=== PATIENT | female | born 1945 | race Caucasian/White ===

== ENCOUNTER → 2017-12-23 | Outpatient (CLI) | payer MEDICARE ==
[~2017-12-23] MED LIST: REGADENOSON INJ 0.4 MG/5 ML DISP.SYRIN IV ONE
--- NOTE | 2017-12-23 13:40 | DRAGON STRESS TEST REPORT ---
INTRAVENOUS LEXISCAN CARDIOLITE STRESS TEST USING SINGLE PHOTON EMMISION COMPUTERIZED TOMOGRAPHIC. DATE OF PROCEDURE: December 23, 2017, INDICATION : Shortness of breath CARDIAC RISK FACTORS: Hypertension, dyslipidemia, former smoker RESTING EKG: Sinus rhythm with right bundle branch block pattern. Left axis deviation noted. STRESS EKG: No significant ST segment changes noted with LexiScan bolus REASON FOR TERMINATION: Protocol. PROCEDURE REPORT: Baseline heart rate 93 beats per minute with blood pressure of 176/79. Patient had no significant complaints. Patient was bolused with Lexiscan 0.4 mg intravenously followed by saline bolus. Heart rate at 2 minutes post bolus 120 with a blood pressure of 163/67. 3 minutes post bolus heart rate 111 with blood pressure of 172/73. No significant EKG changes were noted. Patient had no significant complaints during the procedure or postprocedure. CONCLUSIONS: Normal EKG and hemodynamic response to IV LexiScan. NUCLEAR DATA: At rest the patient was given 11.77 millicuries of technetium 99 sestamibi injected intravenously. As per protocol rest gated SPECT images were obtained. On day of stress test, the patient was given intravenous LexiScan at a dose of 0.4 mg in 5 mL intravenously, followed by flush with normal saline. Subsequently the stress dose of 34.2 millicuries of technetium 99 sestamibi was injected intravenously. As per protocol stress gated images were obtained. NUCLEAR INTERPRETATION: Both raw and processed data were used for interpretation. Visual, qualitative, computer-generated quantitative data was used. There was good myocardial uptake of technetium compound. Motion artifact and soft tissue attenuations were noted. Increased visceral uptake was noted. No definitive areas of transient perfusion defect noted, except for borderline decreased uptake noted in the distal lateral wall. There were no corresponding wall motion abnormalities. This is felt to be artifactual related to attenuation artifacts, No definitive areas of fixed perfusion defect or scars noted. EKG gated imaging showed LV EF at 82 %, rest and stress gated EF similar visually. T. I D. ratio was 1.01. Lung heart ratio noted to be within normal limits 0.41. No significant extracardiac and abnormal radiotracer activities were noted. RV free wall uptake was noted to be WNL. IMPRESSION: Also refer to comments under nuclear interpretation. Also test results needs to be interpreted in the context of pretest probability. 1. No definitive areas of transient perfusion defect noted. 2. There is no definitive scintigraphic evidence of myocardial infarction/scar. 3. EKG gated imaging shows left ventricular ejection fraction of approx. 82 %. LVH noted. 4. Clinical correlation requested as occasionally single vessel disease or balanced ischemia could be missed. In approximately 10% of the cases Lexiscan may not cause adequate vasodilatory stress. RECOMMENDATIONS: Aggressive risk factor modification and medical management. Further evaluation may be needed if continued symptoms or other high risk indicators are noted on clinical evaluation. Close cardiology follow-up is also recommended. Clinical correlation with echocardiogram derived ejection fraction. Inability to exercise by itself can lead to increased cardiovascular event risks. Consider cardiology consultation and or follow-up if clinically indicated. I am available for cardiology evaluation and consultation if requested by the plate glass polisher, unless patient already has a propellant assembler. Dr. Rachele Meyer. MRCP Board certified in cardiology and sleep medicine. Board certified in nuclear cardiology, adult echocardiography. MARCELINO
== END ==
LOC: RAD 07:50
PROVIDERS: ATTEND Internal Medicine Cardiovascular Disease
DX: R06.02 Shortness of breath (principal)
CPT/HCPCS: 93017; 78452; A9500; J2785; Q9969

== ENCOUNTER 2019-02-14 15:57 | Inpatient (IN) | payer MEDICARE, OTHER ==
[2019-02-14] MEDS ORDERED: NORMAL SALINE 1000 ML 1,000 ML IV ONE ×3 (16:31→18:17)
[2019-02-14 16:49] LABS: VENOUS BLOOD BASE EXCESS -5.2 mmol/L; VENOUS BLOOD PCO2 33.4 mmHg (35-63); VENOUS BLOOD PH 7.37 (7.30-7.42)
[2019-02-14 16:52] LABS: HEMATOCRIT 40.6 % (36.0-47.0); HEMOGLOBIN 13.4 g/dL (12.0-15.5); MEAN CORPUSCULAR HEMOGLOBIN 29.4 pg (27.0-33.4); MEAN CORPUSCULAR HGB CONC 32.9 g/dL (32.0-36.0); MEAN CORPUSCULAR VOLUME 89 fl (80-97); PLATELET COUNT 157 10^3/uL (150-450); RED BLOOD COUNT 4.55 10^6/uL (3.72-5.28); RED CELL DISTRIBUTION WIDTH 13.8 % (11.5-14.0); WHITE BLOOD COUNT 16.8 10^3/uL (4.0-10.5)
[2019-02-14 16:59] LABS: INTERNATIONAL RATION (INR) 2.81; PROTHROMBIN TIME 30.2 SEC (11.4-15.4)
[2019-02-14 17:12] LABS: ALKALINE PHOSPHATASE 71 U/L (38-126); ANION GAP 12 (5-19); ASPARTATE AMINO TRANSFERASE 26 U/L (14-36); BILIRUBIN,DIRECT 0.5 mg/dL (0.0-0.4); BLOOD UREA NITROGEN 45 mg/dL (7-20); CALCIUM 8.4 mg/dL (8.4-10.2); CARBON DIOXIDE 23 mmol/L (22-30); CHLORIDE 99 mmol/L (98-107); GLUCOSE 92 mg/dL (75-110); POTASSIUM 4.2 mmol/L (3.6-5.0); TOTAL PROTEIN 5.6 g/dL (6.3-8.2)
[2019-02-14 17:24] LABS: AMORPHOUS SEDIMENT,URINE TRACE /HPF; APPEARANCE,URINE CLOUDY; BILIRUBIN,URINE NEGATIVE (NEGATIVE); COLOR,URINE AMBER; GLUCOSE, URINE NEGATIVE (NEGATIVE); KETONES,URINE NEGATIVE (NEGATIVE); LEUKOCYTE ESTERASE,URINE MODERATE (NEGATIVE); NITRITE,URINE NEGATIVE (NEGATIVE); PROTEIN,URINE 30 mg/dL (NEGATIVE); URINE SPECIFIC GRAVITY 1.024; UROBILINOGEN,URINE NEGATIVE mg/dL (<2.0)
[2019-02-14 17:25] LABS: ABSOLUTE MONOCYTES # (MANUAL) 0.7 10^3/uL (0.1-1.4); BAND NEUTROPHILS % (MANUAL) 4 % (3-5); BASOPHILS % (MANUAL) 0 % (0-2); EOSINOPHILS % (MANUAL) 0 % (0-6); LYMPHOCYTES % (MANUAL) 6 % (13-45); METAMYELOCYTES % (MANUAL) 1 % (0); MONOCYTES % (MANUAL) 4 % (3-13); SEGMENTED NEUTROPHILS % (MAN) 85 % (42-78); TOTAL CELLS COUNTED 100
[2019-02-14 17:31] LABS: OVALOCYTES SLIGHT; PLATELET COMMENT ADEQUATE; PLATELET LARGE PRESENT; POIKILOCYTOSIS SLIGHT; TOXIC GRANULATION SLIGHT; TOXIC VACUOLATION PRESENT
[2019-02-14] MEDS ORDERED: PIPERACILLIN/TAZOBACTAM 4.5 GM VIAL IV ONE (17:44)
--- NOTE | 2019-02-14 17:58 | RADIOLOGY REPORT (SQ) ---
EXAM DESCRIPTION: CHEST SINGLE VIEW COMPLETED DATE/TIME: 02/14/2019 5:32 pm REASON FOR STUDY: cough COMPARISON: None. EXAM PARAMETERS: NUMBER OF VIEWS: One view. TECHNIQUE: Single frontal radiographic view of the chest acquired. RADIATION DOSE: NA LIMITATIONS: None. FINDINGS: LUNGS AND PLEURA: Retrocardiac opacification on the left. Left hemidiaphragm is indistinc t. MEDIASTINUM AND HILAR STRUCTURES: No masses. Contour normal. HEART AND VASCULAR STRUCTURES: Cardiomegaly. No lasha pulmonary edema. BONES: No acute findings. HARDWARE: None in the chest. OTHER: No other significant finding. IMPRESSION: Cardiomegaly without pulmonary edema. Cannot exclude left lower lobe pneumonia. TECHNICAL DOCUMENTATION: JOB ID: [id number] [employer]- All Rights Reserved Reading location - IP/workstation name: [email or web address]
--- NOTE | 2019-02-14 18:11 | ER Document Report ---
ED Fall - General Chief Complaint: Fall Stated Complaint: FALL Time Seen by Provider: 02/14/19 16:24 Primary Care Provider: EVELYN LUJAN MD [Primary Care Provider] - Follow up as needed Mode of Arrival: Wheelchair Information source: Patient TRAVEL OUTSIDE OF THE [place] IN LAST 30 DAYS: No - HPI Notes: Patient brought in by son for weakness. Patient states yesterday she was seen in the chair she became weak and fell. Today she states she felt even more weak so she had her son bring her to the hospital. She states she was recently diagnosed with a sinus infection and placed on antibiotics. She also has recently developed diarrhea. No hospital stays. Patient denies any pain. No vomiting. No problems with urination. Patient symptoms been constant and severe. They are worse with exertion and better with rest. There is no radiation of the symptoms. Patient denies losing consciousness. Denies any blood in her stool. - Related data Allergies/Adverse Reactions: atenolol Allergy (Verified 02/14/19 16:49) Past Medical History - General Information source: Patient, Relative - Social History Smoking Status: Never Smoker Frequency of alcohol use: None Drug Abuse: None Family History: Reviewed & Not Pertinent Patient has suicidal ideation: No Patient has homicidal ideation: No Review of Systems - Review of Systems Constitutional: Malaise, Weakness Cardiovascular: denies: Chest pain, Dyspnea Respiratory: Cough. denies: Short of breath Gastrointestinal: Diarrhea, Nausea. denies: Abdominal pain, Vomiting Neurological/Psychological: Weakness -: Yes All other systems reviewed and negative Physical Exam - Vital signs Vitals: Temp Pulse Resp BP Pulse Ox 97.8 F 83 20 64/24 L 91 L 02/14/19 16:14 02/14/19 16:14 02/14/19 16:14 02/14/19 16:14 02/14/19 16:14 Interpretation: Hypotensive - General General appearance: Alert In distress: None - HEENT Head: Normocephalic, Atraumatic Eyes: Normal Pupils: PERRL - Respiratory Respiratory status: No respiratory distress Chest status: Nontender Breath sounds: Normal Chest palpation: Normal - Cardiovascular Rhythm: Regular Heart sounds: Normal auscultation Murmur: No - Abdominal Inspection: Normal Distension: No distension Bowel sounds: Normal Tenderness: Nontender Organomegaly: No organomegaly - Back Back: Normal, Nontender - Extremities General upper extremity: Normal inspection, Nontender, Normal color, Normal ROM, Normal temperature General lower extremity: Normal inspection, Nontender, Normal color, Normal ROM, Normal temperature, Normal weight bearing. No: Nitish's sign - Neurological Neuro grossly intact: Yes Cognition: Normal Orientation: AAOx4 [place] Coma Scale Eye Opening: Spontaneous [place] Coma Scale Verbal: Oriented [place] Coma Scale Motor: Obeys Commands [place] Coma Scale Total: 15 Speech: Normal Motor strength normal: LUE, RUE, LLE, RLE Sensory: Normal - Psychological Associated symptoms: Normal affect, Normal mood - Skin Skin Temperature: Warm Skin Moisture: Dry Skin Color: Pale Course - Re-evaluation Re-evalutation: 02/14/19 17:57 Patient reevaluated just now. Her blood pressure is now 104 systolic after 2 L of fluid. Her C. difficile is pending but since patient has an elevated lactate and was hypotensive and has a urinalysis consistent with infection I will give her a dose of Zosyn. Abdomen still nontender and nondistended. Hemoglobin is stable. Patient has never been tachycardic. Patient is definitely more awake and conversant than on arrival. I have discussed the case with the admitting hospitalist who is accepted the patient for admission. - Vital Signs Vital signs: Temp Pulse Resp BP Pulse Ox 97.8 F 83 17 94/55 L 100 02/14/19 17:14 02/14/19 16:14 02/14/19 17:14 02/14/19 17:14 02/14/19 17:14 - Laboratory Result Diagrams: 02/14/19 16:27 02/14/19 16:27 Laboratory results interpreted by me: 02/14/19 02/14/19 02/14/19 16:27 16:27 16:27 WBC 16.8 H Seg Neuts % (Manual) 85 H Lymphocytes % (Manual) 6 L Metamyelocytes % 1 H Abs Neuts (Manual) 15.1 H PT 30.2 H VBG pCO2 VBG HCO3 Sodium 133.9 L BUN 45 H Creatinine 2.37 H Est GFR ( Amer) 24 L Est GFR (MDRD) Non-Af 20 L Lactic Acid Direct Bilirubin 0.5 H Total Protein 5.6 L Albumin 3.0 L Urine Protein Ur Leukocyte Esterase 02/14/19 02/14/19 02/14/19 16:27 16:27 17:05 WBC Seg Neuts % (Manual) Lymphocytes % (Manual) Metamyelocytes % Abs Neuts (Manual) PT VBG pCO2 33.4 L VBG HCO3 19.0 L Sodium BUN Creatinine Est GFR ( Amer) Est GFR (MDRD) Non-Af Lactic Acid 2.4 H Direct Bilirubin Total Protein Albumin Urine Protein 30 H Ur Leukocyte Esterase MODERATE H - Diagnostic Test Radiology reviewed: Image reviewed, Reports reviewed - EKG Interpretation by Me EKG shows normal: abnormal: Sinus rhythm Rate: Normal Rhythm: A.Fib [place]/QRS: RBBB Critical Care Note - Critical Care Note Total time excluding time spent on procedures (mins): 55 Comments: I performed critical care on this patient's approximate 55 minutes. This included multiple reassessments. Is included discussions with family. It included reviewing images as well as laboratories. It included discussions with consultants. Discharge - Discharge Clinical Impression: Lower GI bleed Hypotension Qualifiers: Hypotension type: hypotension due to hypovolemia Qualified Code(s): I95.89 - Other hypotension; E86.1 - Hypovolemia Diarrhea Qualifiers: Diarrhea type: unspecified type Qualified Code(s): R19.7 - Diarrhea, uns pecified UTI (urinary tract infection) Qualifiers: Urinary tract infection type: acute cystitis Hematuria presence: without hematuria Qualified Code(s): N30.00 - Acute cystitis without hematuria Sepsis Qualifiers: Sepsis type: sepsis due to unspecified organism Sepsis acute organ dysfunction status: with acute organ dysfunction Severe sepsis acute organ dysfunction type: acute renal failure Acute renal failure type: unspecified Severe sepsis shock status: with septic shock Qualified Code(s): A41.9 - Sepsis, unspecified organism; R65.21 - Severe sepsis with septic shock; N17.9 - Acute kidney failure, unspecified Condition: Critical Disposition: ADMITTED INPATIENT Admitting Provider: Brian (Hospitalist) Unit Admitted: IMCU Referrals: EVELYN LUJAN MD [Primary Care Provider] - Follow up as needed
[2019-02-14] MEDS ORDERED: ONDANSETRON HCL INJ/PF 4 MG/2 ML SDV IV PRN (18:26)
--- NOTE | 2019-02-14 18:55 | PDOC H&P ---
History of Present Illness Admission Date/PCP: EVELYN LUJAN MD History of Present Illness: AUTUMN JOHNSTON is a 73 year old female with a history of atrial fibrillation on chronic anticoagulation who presents with approximately 1 week of upper respiratory symptoms followed by a fall yesterday. She said that she been feeling really lousy for about a week, primarily with upper respiratory congestion and a bit of a cough. She said she had one episode of diarrhea but that is all. She has not had any antibiotics in the past 3 months, but went to see her doctor yesterday who started her on Levaquin, and the first dose was last night. The diarrhea that she had was before the Levaquin and she has not had any since. She has had decreased p.o. intake including decreased fluid intake, and claims to have had decreased urine output over the last couple of days. She is continue to take her medications, but she does not know the names of all of them but she knows that she takes Coumadin for her atrial fibrillation. She was sitting in a chair in the kitchen doing some work y esterday when she feels like she fell asleep and then fell. She was not on the floor long, maybe a few minutes, before her son who lives with her found her and helped get her back up into the chair. She did not want to come to the hospital. She was talking to her sister in [place] on the phone, who encouraged her to come to the hospital to get checked out today. She was found to have a very low blood pressure which has responded to some IV fluids, as well as an elevated creatinine. She is complaining of some pain on her left rib cage laterally in her left shoulder where she fell. She was also noted on her chest x-ray to have a possible left lower lobe opacity. No comment was made on the x- ray about her left shoulder her left rib cage, but the film was not done specifically to evaluate those. She is being admitted for what we suspect to be an acute kidney injury, dehydration, hypotension, and a possible left lower lobe pneumonia. Past Medical History Cardiac Medical History: Reports: Hypertension Social History Smoking Status: Never Smoker Family History Family History: Reviewed & Not Pertinent Parental Family History Reviewed: Yes - Coronary artery disease, hypertension Children Family History Reviewed: Yes - Nothing known Sibling(s) Family History Reviewed.: Yes - Hypertension Medication/Allergy Allergies/Adverse Reactions: atenolol Allergy (Verified 02/14/19 16:49) Review of Systems All systems: reviewed and no additional remarkable complaints except as stated - All systems were reviewed and were negative except as noted in the HPI Physical Exam Vital Signs: Temp Pulse Resp BP Pulse Ox 97.8 F 83 17 94/55 L 100 02/14/19 17:14 02/14/19 16:14 02/14/19 17:14 02/14/19 17:14 02/14/19 17:14 Intake & Output 02/13/19 02/14/19 02/15/19 06:59 06:59 06:59 Intake Total 1999 Balance 1999 Weight 60.5 kg General appearance: PRESENT: no acute distress, cooperative, disheveled, hard of hearing Head exam: PRESENT: atraumatic, normocephalic Eye exam: PRESENT: EOMI, PERRLA. ABSENT: conjunctival injection, nystagmus Ear exam: PRESENT: normal external ear exam Mouth exam: PRESENT: dry mucosa, neck supple Teeth exam: PRESENT: poor dentation Throat exam: ABSENT: post pharyngeal erythema Neck exam: PRESENT: full ROM. ABSENT: carotid bruit, JVD, lymphadenopathy, meningismus, tenderness, thyromegaly Respiratory exam: PRESENT: clear to auscultation skyler, symmetrical, unlabored. ABSENT: accessory muscle use, chest wall tenderness, crackles, prolonged expiratory phas, rhonchi, tachypnea, wheezes Cardiovascular exam: PRESENT: irregular rhythm, +S1, +S2 Pulses: PRESENT: normal carotid pulses Vascular exam: PRESENT: normal capillary refill GI/Abdominal exam: PRESENT: normal bowel sounds, soft. ABSENT: distended, guarding, rebound, tenderness Extremities exam: PRESENT: tenderness - Left shoulder over the acromion process. ABSENT: clubbing, pedal edema Musculoskeletal exam: PRESENT: normal inspection, tenderness - Left shoulder over acromion and left superior lateral rib cage. ABSENT: deformity Neurological exam: PRESENT: alert, awake, oriented to person, oriented to place, oriented to time, oriented to situation, CN II-XII grossly intact. ABSENT: motor sensory deficit Psychiatric exam: PRESENT: appropriate affect, normal mood Skin exam: PRESENT: dry, warm Results Laboratory Results: 02/14/19 16:27 02/14/19 16:27 02/14/19 02/14/19 02/14/19 16:27 16:27 16:27 WBC 16.8 H RBC 4.55 Hgb 13.4 Hct 40.6 MCV 89 MCH 29.4 MCHC 32.9 RDW 13.8 Plt Count 157 Seg Neutrophils % Not Reportable VBG pH VBG pCO2 VBG HCO3 VBG Base Excess Sodium 133.9 L Potassium 4.2 Chloride 99 Carbon Dioxide 23 Anion Gap 12 BUN 45 H Creatinine 2.37 H Est GFR ( Amer) 24 L Glucose 92 Lactic Acid 2.4 H Calcium 8.4 Total Bilirubin 1.0 AST 26 Alkaline Phosphatase 71 Total Protein 5.6 L Albumin 3.0 L Urine Color Urine Appearance Urine pH Ur Specific [place] Urine Protein Urine Glucose (UA) Urine Ketones Urine Blood Urine Nitrite Ur Leukocyte Esterase Urine WBC (Auto) Urine RBC (Auto) 02/14/19 02/14/19 16:27 17:05 WBC RBC Hgb Hct MCV MCH MCHC RDW Plt Count Seg Neutrophils % VBG pH 7.37 VBG pCO2 33.4 L VBG HCO3 19.0 L VBG Base Excess -5.2 Sodium Potassium Chloride Carbon Dioxide Anion Gap BUN Creatinine Est GFR ( Amer) Glucose Lactic Acid Calcium Total Bilirubin AST Alkaline Phosphatase Total Protein Albumin Urine Color PHILLIP Urine Appearance CLOUDY Urine pH 5.0 Ur Specific [place] 1.024 Urine Protein 30 H Urine Glucose (UA) NEGATIVE Urine Ketones NEGATIVE Urine Blood NEGATIVE Urine Nitrite NEGATIVE Ur Leukocyte Esterase MODERATE H Urine WBC (Auto) 13 Urine RBC (Auto) 2 02/14/19 16:27 Troponin I 0.018 Impressions: Chest X-Ray 02/14/19 16:31 IMPRESSION: Cardiomegaly without pulmonary edema. Cannot exclude left lower lobe pneumonia. Assessment and Plan - Diagnosis (1) Acute kidney injury Is this a current diagnosis for this admission?: Yes Plan: She has no knowledge of any prior chronic kidney disease. We will give her some IV fluids monitor her urine output and electrolytes and see how her creatinine response. We will check her medications wants to get put into the computer to see if any of those could have played a part because she was still taking them even though she was not having much food or water intake or urine output for couple days. (2) Dehydration Is this a current diagnosis for this admission?: Yes Plan: Give her IV fluids and monitor her urine output (3) Left lower lobe pneumonia Qualifiers: Pneumonia type: due to unspecified organism Qualified Code(s): J18.1 - Lobar pneumonia, unspecified organism Is this a current diagnosis for this admission?: Yes Plan: We will continue her Levaquin, will dose at [place] (4) Atrial fibrillation Qualifiers: Atrial fibrillation type: chronic Qualified Code(s): I48.2 - Chronic atrial fibrillation Is this a current diagnosis for this admission?: Yes Plan: We will continue her rate controlling medications once we find out what it is (5) Chronic anticoagulation Is this a current diagnosis for this admission?: Yes Plan: INR is in the therapeutic range, will be okay to hold her Coumadin tonight and resume it tomorrow once we know what her doses (6) Hypotension Qualifiers: Hypotension type: hypotension due to hypovolemia Qualified Code(s): I95.89 - Other hypotension; E86.1 - Hypovolemia Is this a current diagnosis for this admission?: Yes Plan: Responded to IV fluids, will continue to monitor - Time Time Spent with patient: 35 or more minutes - Inpatient Certification Based on my medical assessment, after consideration of the patient's comorbidities, presenting symptoms, or acuity I expect that the services needed warrant INPATIENT care.: Yes I certify that my determination is in accordance with my understanding of Medicare's requirements for reasonable and necessary INPATIENT services [42 CFR 412.3e].: Yes Medical Necessity: Need Close Monitoring Due to Risk of Patient Decompensation, Need For IV Fluids, Need For Continuous Telemetry Monitoring, Need for IV Antibiotics, Risk of Complication if Not Cared For in Hospital
--- NOTE | 2019-02-14 19:30 | RADIOLOGY REPORT (SQ) ---
EXAM DESCRIPTION: RIBS LEFT W/O PA CHEST COMPLETED DATE/TIME: 02/14/2019 7:07 pm REASON FOR STUDY: left rib pain after fall COMPARISON: None. NUMBER OF VIEWS: Five views TECHNIQUE: Images acquired of the left ribs in the area of focal concern. LIMITATIONS: None. FINDINGS: RIBS: No acute displaced fracture. No worrisome bone lesions. LUNGS: Limited exam. Cannot exclude mild pulmonary edema. OTHER: Cardiomegaly. IMPRESSION: No acute displaced rib fracture. Cardiomegaly. Cannot exclude mild pulmonary edema. COMMENT: SITE OF TRAUMA/COMPLAINT MARKED/STAMP COMPLETED: No TECHNICAL DOCUMENTATION: JOB ID: [id number] [employer]- All Rights Reserved Reading location - IP/workstation name: [email or web address]
--- NOTE | 2019-02-14 19:31 | RADIOLOGY REPORT (SQ) ---
EXAM DESCRIPTION: SHOULDER LEFT 2 OR MORE VIEWS COMPLETED DATE/TIME: 02/14/2019 7:07 pm REASON FOR STUDY: left rib pain after fall COMPARISON: None. NUMBER OF VIEWS: Three views. TECHNIQUE: Internal rotation, external rotation, and Y view images acquired of the left shoulder. LIMITATIONS: None. FINDINGS: MINERALIZATION: Normal. BONES: No acute fracture. No worrisome bone lesions. JOINTS: No dislocation. VISUALIZED LUNGS AND RIBS: No pneumothorax. No rib fracture. SOFT TISSUES: No radiopaque foreign body. OTHER: No other significant finding. IMPRESSION: NEGATIVE STUDY OF THE LEFT SHOULDER. NO RADIOGRAPHIC EVIDENCE OF ACUTE INJURY. TECHNICAL DOCUMENTATION: JOB ID: [id number] [employer]- All Rights Reserved Reading location - IP/workstation name: [email or web address]
[2019-02-14] MEDS ORDERED: LEVOFLOXACIN 750 MG/D5W RTU 750 MG/150 ML RTUPB IV SCH (20:00)
--- NOTE | 2019-02-14 21:00 | EKG REPORT ---
SEVERITY:- ABNORMAL ECG - ATRIAL FIBRILLATION RIGHT BUNDLE BRANCH BLOCK INFERIOR INFARCT, AGE INDETERMINATE : Confirmed by: Sara Chavez MD 14-Feb-2019 20:59:58
[2019-02-14] MEDS: NORMAL SALINE 1000 ML 1,000 ML IV PRN (21:21)
[2019-02-15 06:56] LABS: HEMATOCRIT 37.1 % (36.0-47.0); HEMOGLOBIN 12.1 g/dL (12.0-15.5); MEAN CORPUSCULAR HEMOGLOBIN 29.4 pg (27.0-33.4); MEAN CORPUSCULAR HGB CONC 32.7 g/dL (32.0-36.0); MEAN CORPUSCULAR VOLUME 90 fl (80-97); PLATELET COUNT 150 10^3/uL (150-450); RED BLOOD COUNT 4.12 10^6/uL (3.72-5.28)
[2019-02-15 07:17] LABS: ANION GAP 9 (5-19); BLOOD UREA NITROGEN 34 mg/dL (7-20); CALCIUM 7.7 mg/dL (8.4-10.2); CARBON DIOXIDE 18 mmol/L (22-30); CHLORIDE 111 mmol/L (98-107); GLUCOSE 76 mg/dL (75-110); POTASSIUM 3.7 mmol/L (3.6-5.0)
[2019-02-15] MEDS: NORMAL SALINE 1000 ML 1,000 ML IV PRN ×2 (08:13→17:03)
[2019-02-15] MEDS ORDERED: DIPHENOXYLATE HCL/ATROP SULF 2.5-0.025 MG TABLET PO PRN (11:46)
[2019-02-15] MEDS ORDERED: ALBUTEROL SULFATE HFA (90 MCG/PUFF) 200 PUFF/8.5 GM MDI IH PRN (11:46)
[2019-02-15] MEDS: METOPROLOL TARTRATE 25 MG TABLET PO SCH ×2 (12:07→21:39)
[2019-02-15] MEDS: ACETAMINOPHEN 325 MG TABLET PO PRN ×2 (12:40→21:41)
[2019-02-15] MEDS: ALBUTEROL SULFATE HFA (90 MCG/PUFF) 200 PUFF/8.5 GM MDI IH PRN (17:42)
--- NOTE | 2019-02-15 18:04 | PDOC PROGRESS REPORT ---
Subjective Progress Note for:: 02/15/19 Subjective:: No adverse events overnight. No new complaints. No fevers. Vital signs been stable. Urine output is improved. She says she is feeling better overall. Reason For Visit: ACUTE KIDNEY INJURY,DEHYDRATION,HYPOTENSION Physical Exam Vital Signs: Temp Pulse Resp BP Pulse Ox 98.0 F 90 18 147/71 H 93 02/15/19 11:14 02/15/19 14:00 02/15/19 11:14 02/15/19 11:14 02/15/19 11:14 Intake & Output 02/14/19 02/15/19 02/16/19 06:59 06:59 06:59 Intake Total 4390 1000 Output Total 350 Balance 4040 1000 Weight 64.3 kg General appearance: PRESENT: no acute distress, cooperative, disheveled, hard of hearing Respiratory exam: PRESENT: clear to auscultation skyler, symmetrical, unlabored. ABSENT: accessory muscle use, chest wall tenderness, crackles, prolonged expiratory phas, rhonchi, tachypnea, wheezes Cardiovascular exam: PRESENT: irregular rhythm, +S1, +S2 Pulses: PRESENT: normal carotid pulses Vascular exam: PRESENT: normal capillary refill GI/Abdominal exam: PRESENT: normal bowel sounds, soft. ABSENT: distended, guarding, rebound, tenderness Extremities exam: PRESENT: tenderness - Left shoulder over the acromion process. ABSENT: clubbing, pedal edema Musculoskeletal exam: PRESENT: normal inspection, tenderness - Left shoulder over acromion and left superior lateral rib cage. ABSENT: deformity Neurological exam: PRESENT: alert, awake, oriented to person, oriented to place, oriented to time, oriented to situation Psychiatric exam: PRESENT: appropriate affect, normal mood Skin exam: PRESENT: dry, warm Results Laboratory Results: 02/15/19 06:35 02/15/19 06:35 02/15/19 02/15/19 06:35 06:35 WBC 17.0 H RBC 4.12 Hgb 12.1 Hct 37.1 MCV 90 MCH 29.4 MCHC 32.7 RDW 14.0 Plt Count 150 Sodium 137.8 Potassium 3.7 Chloride 111 H Carbon Dioxide 18 L Anion Gap 9 BUN 34 H Creatinine 1.39 H Est GFR ( Amer) 45 L Glucose 76 Calcium 7.7 L 02/14/19 02/14/19 16:27 16:27 Creatine Kinase 29 L Troponin I 0.018 Impressions: Ribs X-Ray 02/14/19 00:00 IMPRESSION: No acute displaced rib fracture. Cardiomegaly. Cannot exclude mild pulmonary edema. Shoulder X-Ray 02/14/19 00:00 IMPRESSION: NEGATIVE STUDY OF THE LEFT SHOULDER. NO RADIOGRAPHIC EVIDENCE OF ACUTE INJURY. Chest X-Ray 02/14/19 16:31 IMPRESSION: Cardiomegaly without pulmonary edema. Cannot exclude left lower lobe pneumonia. Assessment and Plan - Diagnosis (1) Acute kidney injury Is this a current diagnosis for this admission?: Yes Plan: Improving very well with IV fluids. We will continue to watch her urine output and her electrolytes. (2) Dehydration Is this a current diagnosis for this admission?: Yes Plan: Improving with IV fluids (3) Left lower lobe pneumonia Qualifiers: Pneumonia type: due to unspecified organism Qualified Code(s): J18.1 - Lobar pneumonia, unspecified organism Is this a current diagnosis for this admission?: Yes Plan: Blood cultures are negative. Currently on empiric antibiotics. (4) Atrial fibrillation Qualifiers: Atrial fibrillation type: chronic Qualified Code(s): I48.2 - Chronic atrial fibrillation Is this a current diagnosis for this admission?: Yes Plan: Rate is controlled and she is on her Coumadin. (5) Chronic anticoagulation Is this a current diagnosis for this admission?: Yes Plan: Coumadin was restarted today. We will track her INR. (6) Hypotension Qualifiers: Hypotension type: hypotension due to hypovolemia Qualified Code(s): I95.89 - Other hypotension; E86.1 - Hypovolemia Is this a current diagnosis for this admission?: Yes Plan: Resolved. Most likely due to hypovolemia. - Time Time Spent with patient: 15-24 minutes
[2019-02-15] MEDS: LORAZEPAM 1 MG TABLET PO SCH (21:37)
[2019-02-15] MEDS: ATORVASTATIN CALCIUM 10 MG TABLET PO SCH (21:40)
[2019-02-15] MEDS ORDERED: (PENDING PHARMACY ID) (Warfarin Sodium 5 MG) PO SCH (22:00)
[2019-02-15] MEDS ORDERED: WARFARIN SODIUM 5 MG TABLET PO SCH (22:00)
[2019-02-16] MEDS: NORMAL SALINE 1000 ML 1,000 ML IV PRN (02:36)
[2019-02-16] MEDS: ALBUTEROL SULFATE HFA (90 MCG/PUFF) 200 PUFF/8.5 GM MDI IH PRN (03:01)
[2019-02-16 05:38] LABS: HEMOGLOBIN 13.4 g/dL (12.0-15.5); MEAN CORPUSCULAR HEMOGLOBIN 29.4 pg (27.0-33.4); MEAN CORPUSCULAR HGB CONC 32.6 g/dL (32.0-36.0); MEAN CORPUSCULAR VOLUME 90 fl (80-97); PLATELET COUNT 173 10^3/uL (150-450); RED BLOOD COUNT 4.54 10^6/uL (3.72-5.28); RED CELL DISTRIBUTION WIDTH 14.2 % (11.5-14.0); WHITE BLOOD COUNT 14.9 10^3/uL (4.0-10.5)
[2019-02-16 06:21] LABS: ANION GAP 9 (5-19); BLOOD UREA NITROGEN 17 mg/dL (7-20); CALCIUM 8.6 mg/dL (8.4-10.2); CARBON DIOXIDE 23 mmol/L (22-30); CHLORIDE 110 mmol/L (98-107); GLUCOSE 101 mg/dL (75-110); POTASSIUM 3.9 mmol/L (3.6-5.0)
[2019-02-16] MEDS: TIOTROPIUM BROMIDE DPI 5 CAP/KIT (18 MCG/CAP) IH SCH (09:56)
[2019-02-16] MEDS: METOPROLOL TARTRATE 25 MG TABLET PO SCH ×2 (09:57→21:08)
[2019-02-16] MEDS: CHOLECALCIFEROL (D3) 1,000 UNIT (25 MCG) TABLET PO SCH (09:57)
[2019-02-16] MEDS: PANTOPRAZOLE SODIUM 20 MG TABLET.DR PO SCH (09:58)
[2019-02-16] MEDS: FLUTICASONE/VILANTEROL 200-25 MCG/DOSE IH SCH (09:58)
[2019-02-16] MEDS ORDERED: (PENDING PHARMACY ID) (Cholecalciferol (Vitamin D3) [Vitamin D3 2000 Unit Tablet] 2,000 UN PO SCH (10:00)
[2019-02-16 10:03] LABS: C DIFFICILE GDH NEGATIVE (NEGATIVE)
[2019-02-16] MEDS: CEFPODOXIME 200 MG TABLET PO SCH ×2 (10:04→21:06)
[2019-02-16] MEDS: ACETAMINOPHEN 325 MG TABLET PO PRN ×2 (10:14→20:39)
[2019-02-16 11:27] LABS: PROTHROMBIN TIME 30.1 SEC (11.4-15.4)
[2019-02-16] MEDS: AZITHROMYCIN 250 MG TABLET PO SCH (12:52)
--- NOTE | 2019-02-16 16:28 | PDOC PROGRESS REPORT ---
Subjective Progress Note for:: 02/16/19 Subjective:: No adverse events overnight. No new complaints. She is been a little tachycardic today so we did have restarted her verapamil. She is had a little bit of a cough but she says overall she feels a lot better. Her urine output is been good. Her blood pressure has come up. Reason For Visit: ACUTE KIDNEY INJURY,DEHYDRATION,HYPOTENSION Physical Exam Vital Signs: Temp Pulse Resp BP Pulse Ox 97.9 F 110 H 18 153/91 H 96 02/16/19 13:10 02/16/19 13:10 02/16/19 13:10 02/16/19 13:10 02/16/19 13:10 Intake & Output 02/15/19 02/16/19 02/17/19 06:59 06:59 06:59 Intake Total 4390 4163 700 Output Total 350 2700 1000 Balance 4040 1463 -300 Weight 64.3 kg 70.1 kg General appearance: PRESENT: no acute distress, cooperative, disheveled, hard of hearing Respiratory exam: PRESENT: Rhonchi, symmetrical, unlabored. ABSENT: accessory muscle use, chest wall tenderness, crackles, prolonged expiratory phas, tachypnea, wheezes Cardiovascular exam: PRESENT: irregular rhythm, +S1, +S2 Pulses: PRESENT: normal carotid pulses Vascular exam: PRESENT: normal capillary refill GI/Abdominal exam: PRESENT: normal bowel sounds, soft. ABSENT: distended, guarding, rebound, tenderness Extremities exam: PRESENT: tenderness - Left shoulder over the acromion process. ABSENT: clubbing, pedal edema Musculoskeletal exam: PRESENT: normal inspection, tenderness - Left shoulder over acromion and left superior lateral rib cage. ABSENT: deformity Neurological exam: PRESENT: alert, awake, oriented to person, oriented to place, oriented to time, oriented to situation Psychiatric exam: PRESENT: appropriate affect, normal mood Skin exam: PRESENT: dry, warm Results Laboratory Results: 02/16/19 05:06 02/16/19 05:06 02/16/19 02/16/19 05:06 05:06 WBC 14.9 H RBC 4.54 Hgb 13.4 Hct 41.0 MCV 90 MCH 29.4 MCHC 32.6 RDW 14.2 H Plt Count 173 Sodium 141.5 Potassium 3.9 Chloride 110 H Carbon Dioxide 23 Anion Gap 9 BUN 17 Creatinine 1.02 Est GFR ( Amer) > 60 Glucose 101 Calcium 8.6 02/14/19 17:05 Catheterized Urine Urine Culture - Final Lactobacillus (Vaginal Juju) 02/14/19 02/14/19 16:27 16:27 Creatine Kinase 29 L Troponin I 0.018 Impressions: Ribs X-Ray 02/14/19 00:00 IMPRESSION: No acute displaced rib fracture. Cardiomegaly. Cannot exclude mild pulmonary edema. Shoulder X-Ray 02/14/19 00:00 IMPRESSION: NEGATIVE STUDY OF THE LEFT SHOULDER. NO RADIOGRAPHIC EVIDENCE OF ACUTE INJURY. Chest X-Ray 02/14/19 16:31 IMPRESSION: Cardiomegaly without pulmonary edema. Cannot exclude left lower lobe pneumonia. Assessment and Plan - Diagnosis (1) Acute kidney injury Is this a current diagnosis for this admission?: Yes Plan: Resolved. Was due to dehydration. (2) Dehydration Is this a current diagnosis for this admission?: Yes Plan: Resolved (3) Left lower lobe pneumonia Qualifiers: Pneumonia type: due to unspecified organism Qualified Code(s): J18.1 - Lobar pneumonia, unspecified organism Is this a current diagnosis for this admission?: Yes Plan: I changed up her antibiotics today because with her being on Coumadin, the Levaquin in combination could cause her INR to go up. I switched her over to Vantin and azithromycin. I do not believe that this patient was septic. (4) Atrial fibrillation Qualifiers: Atrial fibrillation type: chronic Qualified Code(s): I48.2 - Chronic atrial fibrillation Is this a current diagnosis for this admission?: Yes Plan: She was on her metoprolol but we had to hold her verapamil because of her blood pressure. We have restarted her verapamil today to improve her rate control. (5) Chronic anticoagulation Is this a current diagnosis for this admission?: Yes Plan: INR is stable in the therapeutic range (6) Hypotension Qualifiers: Hypotension type: hypotension due to hypovolemia Qualified Code(s): I95.89 - Other hypotension; E86.1 - Hypovolemia Is this a current diagnosis for this admission?: Yes Plan: Due to dehydration. Resolved. - Time Time Spent with patient: 15-24 minutes
[2019-02-16] MEDS: ATORVASTATIN CALCIUM 10 MG TABLET PO SCH (21:05)
[2019-02-16] MEDS: LORAZEPAM 1 MG TABLET PO SCH (21:09)
[2019-02-16] MEDS ORDERED: LEVALBUTEROL HCL NEB 1.25 MG/3 ML AMPUL NEB PRN (21:23)
[2019-02-16] MEDS ORDERED: WARFARIN SODIUM 2.5 MG TABLET PO SCH (22:00)
[2019-02-17] MEDS: LEVALBUTEROL HCL NEB 1.25 MG/3 ML AMPUL NEB SCH ×2 (02:23→08:16)
[2019-02-17 05:30] LABS: HEMATOCRIT 36.6 % (36.0-47.0); HEMOGLOBIN 12.3 g/dL (12.0-15.5); MEAN CORPUSCULAR HEMOGLOBIN 29.9 pg (27.0-33.4); MEAN CORPUSCULAR HGB CONC 33.5 g/dL (32.0-36.0); MEAN CORPUSCULAR VOLUME 89 fl (80-97); PLATELET COUNT 181 10^3/uL (150-450); RED BLOOD COUNT 4.11 10^6/uL (3.72-5.28); RED CELL DISTRIBUTION WIDTH 14.3 % (11.5-14.0); WHITE BLOOD COUNT 10.9 10^3/uL (4.0-10.5)
[2019-02-17 05:35] LABS: INTERNATIONAL RATION (INR) 3.25; PROTHROMBIN TIME 33.9 SEC (11.4-15.4)
[2019-02-17 05:44] LABS: ANION GAP 6 (5-19); BLOOD UREA NITROGEN 12 mg/dL (7-20); CALCIUM 8.2 mg/dL (8.4-10.2); CARBON DIOXIDE 25 mmol/L (22-30); CHLORIDE 110 mmol/L (98-107); GLUCOSE 109 mg/dL (75-110); POTASSIUM 3.6 mmol/L (3.6-5.0)
[2019-02-17] MEDS ORDERED: LISINOPRIL 10 MG TABLET ONE (08:58)
[2019-02-17] MEDS ORDERED: DILTIAZEM HCL INJ 25 MG/5 ML VIAL ONE (09:01)
[2019-02-17] MEDS: METOPROLOL TARTRATE 25 MG TABLET PO SCH ×2 (09:14→22:09)
[2019-02-17] MEDS: CHOLECALCIFEROL (D3) 1,000 UNIT (25 MCG) TABLET PO SCH (09:29)
[2019-02-17] MEDS: PANTOPRAZOLE SODIUM 20 MG TABLET.DR PO SCH (09:31)
[2019-02-17] MEDS: DILTIAZEM HCL 60 MG TABLET PO SCH ×3 (09:51→22:08)
[2019-02-17] MEDS: CEFPODOXIME 200 MG TABLET PO SCH ×2 (09:53→22:11)
[2019-02-17] MEDS: FLUTICASONE/VILANTEROL 200-25 MCG/DOSE IH SCH (09:54)
[2019-02-17] MEDS: TIOTROPIUM BROMIDE DPI 5 CAP/KIT (18 MCG/CAP) IH SCH (09:55)
[2019-02-17] MEDS: LISINOPRIL 10 MG TABLET PO SCH (09:56)
[2019-02-17] MEDS ORDERED: (PENDING PHARMACY ID) (Lisinopril [Lisinopril] 20 MG) PO SCH (10:00)
[2019-02-17] MEDS ORDERED: VERAPAMIL HCL 240 MG TABLET.SA PO SCH (10:00)
[2019-02-17] MEDS ORDERED: LEVALBUTEROL HCL NEB 1.25 MG/3 ML AMPUL NEB PRN (10:02)
--- NOTE | 2019-02-17 11:50 | Physician Advisory Note ---
Physician Advisor ProgressNote .: [facility], I have reviewed the medical record for this patient. Physician Advisor Statement: Was asked to review case r.e. dx.s by [employer] sales coach. Attending, please clarify in documentation: 1. Do you believe pt's initial severe hypotension without tachycardia (+/- associated MEJIA), with rise in both HR & BP on 911 PM (w/return of Cr to 1's) was due to: A. Adverse effect of verapamil/metoprolol/lisinopril (in addition to hypovolemia)? B. Hypovolemia alone? C. Sepsis &/or septic shock (in addition to hypovolemia)? 2. Please state whether sepsis & septic shock dx.s listed by ED MD were: A. considered but ruled out, based on (clinical response, ...?), or B. ruled in, noting what acute organ dysfunction was due to this, & all findings supporting the dx. 3. PNA: what sx/findings support this dx, & what kind of PNA is suspected? (may base this on what tx is being used for it w/good response): A. "gram positive type", or B. "gram neg type", or C. "viral", or ...? 4. Pt's low Na level initially: A. Did pt come in with "acute hyponatremia, likely due to , improved now w/IVF"? or B. Was Na level 134 felt to be not relevant in this case, or ...? Discussion: 73yo small female w/HTN, Afib, in w/weakness, recent sinusitis dx w/very poor po intake but continued meds including high dose verapamil, metoprolol, & lisinopril. Profoundly hypotensive initially, but not tachycardic, despite Afib. BP responded quickly to IVF 2L, then given 1L more & 125ml/hr. (+)UTI, LLL opacity. Lactate 2.4 - potential causes could include marked hypoperfusion (due to hypovolemia or due to sepsis/shock) - per UTD. (+) MEJIA - potential causes could include marked hypoperfusion (hypovolemia or sepsis/shock) &/or lisinopril being continued in face of hypovolemia. Initially had decreased mental status (ED dr states after 2L IVF, "more awake/conversant") - could be due to infxn, sepsis - or severe hypovolemia? O2 sat 89% once the 1st night - could be due to PNA, sepsis, or documentation error, or ...? (+) tachypnea - potential causes could include PNA or sepsis. Leukocytosis - potential causes could include UTI, sinusitis, PNA, sepsis, or combo. The day after adm, BP climbed into HTN range (off her BP/Afib meds), Afib HR climbed to 110s-120s, UOP increased, & Cr dropped, while WBC remained essentially the same, bicarb dropped to 18, and plts dropped a little more to borderline low. Thanks! CK
[2019-02-17] MEDS: AZITHROMYCIN 250 MG TABLET PO SCH (14:28)
[2019-02-17] MEDS: ACETAMINOPHEN 325 MG TABLET PO PRN ×2 (16:07→22:09)
--- NOTE | 2019-02-17 17:35 | PDOC PROGRESS REPORT ---
Subjective Progress Note for:: 02/17/19 Subjective:: No adverse events overnight. Today her heart rate started to climb up and at one point she was in the 130s and 140s, but had a good response to IV Cardizem. She had only been on her metoprolol and her verapamil had not been restarted, so I started her on oral Cardizem based on her response, and also because of the better effect on her blood pressure I anticipate it would have over the verapamil. We have good results with this strategy throughout the day. Reason For Visit: ACUTE KIDNEY INJURY,DEHYDRATION,HYPOTENSION Physical Exam Vital Signs: Temp Pulse Resp BP Pulse Ox 98.2 F 101 H 18 152/94 H 96 02/17/19 16:13 02/17/19 16:13 02/17/19 16:13 02/17/19 16:13 02/17/19 16:13 Intake & Output 02/16/19 02/17/19 02/18/19 06:59 06:59 06:59 Intake Total 4163 2500 Output Total 2700 2300 Balance 1463 200 Weight 70.1 kg 66.2 kg General appearance: PRESENT: no acute distress, cooperative, disheveled, hard of hearing Respiratory exam: PRESENT: Scant rhonchi, symmetrical, unlabored. ABSENT: accessory muscle use, chest wall tenderness, crackles, prolonged expiratory phas, tachypnea, wheezes Cardiovascular exam: PRESENT: irregular rhythm, +S1, +S2 Pulses: PRESENT: normal carotid pulses Vascular exam: PRESENT: normal capillary refill GI/Abdominal exam: PRESENT: normal bowel sounds, soft. ABSENT: distended, guarding, rebound, tenderness Musculoskeletal exam: PRESENT: normal inspection. ABSENT: deformity, tenderness Neurological exam: PRESENT: alert, awake, oriented to person, oriented to place, oriented to time, oriented to situation Psychiatric exam: PRESENT: appropriate affect, normal mood Skin exam: PRESENT: dry, warm Results Laboratory Results: 02/17/19 05:13 02/17/19 05:13 02/17/19 02/17/19 05:13 05:13 WBC 10.9 H RBC 4.11 Hgb 12.3 Hct 36.6 MCV 89 MCH 29.9 MCHC 33.5 RDW 14.3 H Plt Count 181 Sodium 140.7 Potassium 3.6 Chloride 110 H Carbon Dioxide 25 Anion Gap 6 BUN 12 Creatinine 0.81 Est GFR ( Amer) > 60 Glucose 109 Calcium 8.2 L 02/14/19 17:05 Catheterized Urine Urine Culture - Final Lactobacillus (Vaginal Juju) 02/14/19 02/14/19 16:27 16:27 Creatine Kinase 29 L Troponin I 0.018 Impressions: Ribs X-Ray 02/14/19 00:00 IMPRESSION: No acute displaced rib fracture. Cardiomegaly. Cannot exclude mild pulmonary edema. Shoulder X-Ray 02/14/19 00:00 IMPRESSION: NEGATIVE STUDY OF THE LEFT SHOULDER. NO RADIOGRAPHIC EVIDENCE OF ACUTE INJURY. Chest X-Ray 02/14/19 16:31 IMPRESSION: Cardiomegaly without pulmonary edema. Cannot exclude left lower lobe pneumonia. Assessment and Plan - Diagnosis (1) Acute kidney injury Is this a current diagnosis for this admission?: Yes Plan: Resolved (2) Dehydration Is this a current diagnosis for this admission?: Yes Plan: Resolved (3) Left lower lobe pneumonia Qualifiers: Pneumonia type: due to unspecified organism Qualified Code(s): J18.1 - Lobar pneumonia, unspecified organism Is this a current diagnosis for this admission?: Yes Plan: Suspected to be bacterial, statistically speaking most likely would be a gram- positive, but with no culture results there is no way to know. She is currently on Vantin and azithromycin, which she was switched over to because we did not want the Levaquin to interact with her warfarin. (4) Atrial fibrillation Qualifiers: Atrial fibrillation type: chronic Qualified Code(s): I48.2 - Chronic atrial fibrillation Is this a current diagnosis for this admission?: Yes Plan: She went into RVR briefly this morning. This is described in detail above. She has good rate control now with a combination of metoprolol and diltiazem. She is anticoagulated with warfarin. (5) Chronic anticoagulation Is this a current diagnosis for this admission?: Yes Plan: INR is little supratherapeutic today. We will repeat this again in the morning to see if her warfarin dosing need to be adjusted. (6) Hypotension Qualifiers: Hypotension type: hypotension due to hypovolemia Qualified Code(s): I95.89 - Other hypotension; E86.1 - Hypovolemia Is this a current diagnosis for this admission?: Yes Plan: Resolved. She is now hypertensive again. We started back on her medications as detailed above. - Time Time Spent with patient: 25-34 minutes - Plan Summary Plan Summary: I do not believe that this patient had sepsis or septic shock. She was hypotensive due to dehydration and she had a normal heart rate because she was still taken her metoprolol on her verapamil, which also compounded her blood blood pressure in the setting of dehydration along with her lisinopril which she also continued to take. Her left lower lobe pneumonia is likely gram-positive, but with no positive culture results, otherwise clinically unable to determine because of the fairly broad-spectrum IV antibiotics that she is taking, which are first-line therapy for community-acquired pneumonia. Her initial sodium of 134 was also probably due to dehydration, and is not really clinically relevant.
[2019-02-17] MEDS: ATORVASTATIN CALCIUM 10 MG TABLET PO SCH (22:09)
[2019-02-17] MEDS: LORAZEPAM 1 MG TABLET PO SCH (22:09)
--- NOTE | 2019-02-17 23:09 | EKG REPORT ---
SEVERITY:- ABNORMAL ECG - WIDE COMPLEX TACHYCARDIA RIGHT BUNDLE BRANCH BLOCK MOST LIKELY ATRIAL FIBRILLATION WITH RBBB : Confirmed by: Sara Chavez MD 17-Feb-2019 23:08:44
[2019-02-18] MEDS: DILTIAZEM HCL 60 MG TABLET PO SCH ×2 (03:59→08:37)
[2019-02-18] MEDS: CHOLECALCIFEROL (D3) 1,000 UNIT (25 MCG) TABLET PO SCH (09:48)
[2019-02-18] MEDS: PANTOPRAZOLE SODIUM 20 MG TABLET.DR PO SCH (09:48)
[2019-02-18] MEDS: METOPROLOL TARTRATE 25 MG TABLET PO SCH (09:48)
[2019-02-18] MEDS: FLUTICASONE/VILANTEROL 200-25 MCG/DOSE IH SCH (09:50)
[2019-02-18] MEDS: LISINOPRIL 10 MG TABLET PO SCH (09:50)
[2019-02-18] MEDS: CEFPODOXIME 200 MG TABLET PO SCH (09:51)
[2019-02-18] MEDS: TIOTROPIUM BROMIDE DPI 5 CAP/KIT (18 MCG/CAP) IH SCH (09:52)
[2019-02-18] MEDS: AZITHROMYCIN 250 MG TABLET PO SCH (12:29)
[2019-02-18 13:04] VITALS: BP 139/75
--- NOTE | 2019-02-18 16:43 | PDOC DISCHARGE SUMMARY ---
General - Admit/Disc Date/PCP Admission Date/Primary Care Provider: 02/14/19 18:46 EVELYN LUJAN MD Discharge Date: 02/18/19 - Discharge Diagnosis (1) Acute kidney injury Is this a current diagnosis for this admission?: Yes Summary: Resolved with IV fluids, was due to dehydration combined with hypotension from hypovolemia and continuing to take her medications (2) Dehydration Is this a current diagnosis for this admission?: Yes Summary: She had poor p.o. intake for a few days from feeling poorly from an upper respiratory infection, resolved with IV fluids (3) Left lower lobe pneumonia Is this a current diagnosis for this admission?: Yes Summary: She had started taking Levaquin for an upper respiratory infection as an outpatient, she had a left lower lobe infiltrate here, got another dose of Levaquin before we changed it to Vantin and azithromycin so that it would not affect her INR while she takes Coumadin (4) Atrial fibrillation Is this a current diagnosis for this admission?: Yes Summary: She was on metoprolol and verapamil for rate control. We held her medications for a day or so until her blood pressure improved. It did improve, but her heart rate started to go out of control. We started her back on metoprolol and change the verapamil to diltiazem because her blood pressure was higher and needed more treatment as well. Her heart rate and blood pressure responded very well to this combination. (5) Chronic anticoagulation Is this a current diagnosis for this admission?: Yes Summary: She had a transient elevation in her INR due to a couple of days of Levaquin. Her antibiotics were adjusted to eliminate this interaction. (6) Hypotension Is this a current diagnosis for this admission?: Yes Summary: Due to dehydration from poor p.o. intake combined with continuing to take her home medications, now resolved - Additional Information Resuscitation Status: Full Code Discharge Diet: Cardiac Discharge Activity: Activity As Tolerated, Balance Activity w/Rest Prescriptions: Diltiazem HCl [Cardizem 60 mg Tablet] 60 mg PO Q6A #2 tablet Diltiazem HCl [Cardizem Cd 240 mg Capsule.cr] 1 cap.sr PO DAILY #30 tab.sr Cefpodoxime Proxetil [Vantin 200 mg Tablet] 200 mg PO Q12 #10 tablet Azithromycin [Zithromax 250 mg Tablet] 500 mg PO NOON #3 tablet Home Medications: Albuterol Sulfate [Proair HFA Inhalation Aerosol 8.5 gm MDI] 1 puff IH ASDIR PRN 02/14/19 Budesonide/Formoterol Fumarate [Symbicort HFA 160-4.5 mcg Inhaler 6 gm] 2 puff IH Q12 02/14/19 Cholecalciferol (Vitamin D3) [Vitamin D3 2000 unit Tablet] 2,000 unit PO DAILY 02/14/19 Diphenoxylate HCl/Atropine [Lomotil 2.5-0.025 mg Tablet] 1 each PO Q8HP PRN 02/14/19 Lisinopril 20 mg PO DAILY 02/14/19 Lorazepam [Ativan 1 mg Tablet] 0.5 mg PO QHS 02/14/19 Metoprolol Tartrate [Lopressor 25 mg Tablet] 25 mg PO Q12 02/14/19 Omeprazole 20 mg PO DAILY 02/14/19 Ondansetron HCl [Zofran 4 mg Tablet] 4 mg PO Q6HP PRN 02/14/19 Pravastatin Sodium [Pravachol] 20 mg PO DAILY 02/14/19 Tiotropium [place] [Spiriva Handihaler 5 Cap/Kit (18 Mcg/Cap)] 1 cap IH DAILY 02/14/19 Warfarin Sodium [Coumadin 2.5 mg Tablet] 2.5 mg PO MOTH@219902/14/19 Warfarin Sodium [Coumadin 5 mg Tablet] 5 mg PO SUTUWEFRSA@219902/14/19 Azithromycin [Zithromax 250 mg Tablet] 500 mg PO NOON #3 tablet 02/18/19 Cefpodoxime Proxetil [Vantin 200 mg Tablet] 200 mg PO Q12 #10 tablet 02/18/19 Diltiazem HCl [Cardizem 60 mg Tablet] 60 mg PO Q6A #2 tablet 02/18/19 Diltiazem HCl [Cardizem Cd 240 mg Capsule.cr] 1 cap.sr PO DAILY #30 tab.sr 02/18/19 History of Present Illness History of Present Illness: AUTUMN JOHNSTON is a 73 year old female with a history of atrial fibrillation on chronic anticoagulation who presents with approximately 1 week of upper respiratory symptoms followed by a fall yesterday. She said that she been feeling really lousy for about a week, primarily with upper respiratory congestion and a bit of a cough. She said she had one episode of diarrhea but that is all. She has not had any antibiotics in the past 3 months, but went to see her doctor yesterday who started her on Levaquin, and the first dose was last night. The diarrhea that she had was before the Levaquin and she has not had any since. She has had decreased p.o. intake including decreased fluid intake, and claims to have had decreased urine output over the last couple of days. She is continue to take her medications, but she does not know the names of all of them but she knows that she takes Coumadin for her atrial fibrillation. She was sitting in a chair in the kitchen doing some work yesterday when she feels like she fell asleep and then fell. She was not on the floor long, maybe a few minutes, before her son who lives with her found her and helped get her back up into the chair. She did not want to come to the hospital. She was talking to her sister in [place] on the phone, who encouraged her to come to the hospital to get checked out today. She was found to have a very low blood pressure which has responded to some IV fluids, as well as an elevated creatinine. She is complaining of some pain on her left rib cage laterally in her left shoulder where she fell. She was also noted on her chest x-ray to have a possible left lower lobe opacity. No comment was made on the x- ray about her left shoulder her left rib cage, but the film was not done specifi kimmy to evaluate those. She is being admitted for what we suspect to be an acute kidney injury, dehydration, hypotension, and a possible left lower lobe pneumonia. Hospital Course Hospital Course: She responded very well to IV fluids. I do not think she was septic, but rather she had poor p.o. intake for a few days because she was not feeling very well and she continued to take her home medications, which lowered her blood pressure in the setting of hypovolemia and I think this contributed to her low blood pressure and her acute kidney injury. She had 2 days of Levaquin and we change that to avoid worsening her INR, which did trend up a little bit above 3 which is the upper end of her range. We held her medicines for couple of days let her blood pressure improved. It did get better, but her heart rate picked up off of her medications. We started her back on metoprolol, and to get better blood pressure control because she was actually hypertensive at this time, instead of her verapamil we started her on Cardizem, which had good effect on both her heart rate and her blood pressure. The new prescription was sent for Cardizem to her pharmacy. We have had her on the short acting here, so I gave her enough to finish the short acting formulation for today and start on long-acting version tomorrow morning. Her labs and examination were reassuring and she was discharged in good condition. Physical Exam Vital Signs: Temp Pulse Resp BP Pulse Ox 99.1 F 72 18 139/75 H 94 02/18/19 13:39 02/18/19 13:39 02/18/19 13:39 02/18/19 13:39 02/18/19 13:39 Intake & Output 02/17/19 02/18/19 02/19/19 06:59 06:59 06:59 Intake Total 2500 900 Output Total 2300 900 Balance 200 0 Weight 66.2 kg 64.3 kg General appearance: PRESENT: no acute distress, cooperative, disheveled, hard of hearing Respiratory exam: PRESENT: Clear to auscultation bilaterally, symmetrical, unlabored. ABSENT: accessory muscle use, chest wall tenderness, crackles, prolonged expiratory phas, rhonchi, tachypnea, wheezes Cardiovascular exam: PRESENT: irregular rhythm, +S1, +S2 Pulses: PRESENT: normal carotid pulses Vascular exam: PRESENT: normal capillary refill GI/Abdominal exam: PRESENT: normal bowel sounds, soft. ABSENT: distended, guarding, rebound, tenderness Musculoskeletal exam: PRESENT: normal inspection. ABSENT: deformity, tenderness Neurological exam: PRESENT: alert, awake, oriented to person, oriented to place, oriented to time, oriented to situation Psychiatric exam: PRESENT: appropriate affect, normal mood Skin exam: PRESENT: dry, warm Results Laboratory Results: 02/17/19 05:13 02/17/19 05:13 02/14/19 02/14/19 16:27 16:27 Creatine Kinase 29 L Troponin I 0.018 Impressions: Ribs X-Ray 02/14/19 00:00 IMPRESSION: No acute displaced rib fracture. Cardiomegaly. Cannot exclude mild pulmonary edema. Shoulder X-Ray 02/14/19 00:00 IMPRESSION: NEGATIVE STUDY OF THE LEFT SHOULDER. NO RADIOGRAPHIC EVIDENCE OF ACUTE INJURY. Chest X-Ray 02/14/19 16:31 IMPRESSION: Cardiomegaly without pulmonary edema. Cannot exclude left lower lobe pneumonia. Qualifiers - * PATIENT BEING DISCHARGED WITH ANY OF THE FOLLOWING DIAGNOSIS: No Acute Heart Failure - Is this a Heart Failure Patient?: No Plan Time Spent: Greater than 30 Minutes
[2019-02-18] MEDS ORDERED: WARFARIN SODIUM 2.5 MG TABLET PO ONE (22:00)
== END 2019-02-18 13:45 | disposition home or self-care (01) | DRG 682 ==
LOC: ER 15:57 → EH 18:46 → 3W 20:49
PROVIDERS: ADMIT Internal Medicine; ATTEND Internal Medicine
DX: N17.9 Acute kidney failure, unspecified (principal); J18.1 Lobar pneumonia, unspecified organism; N30.00 Acute cystitis without hematuria; I12.9 Hypertensive chronic kidney disease with stage 1 through stage 4 chronic kidney disease, or unspecified chronic kidney disease; E86.0 Dehydration; I95.9 Hypotension, unspecified; N18.9 Chronic kidney disease, unspecified; I48.2 Chronic atrial fibrillation; I95.89 Other hypotension; E86.1 Hypovolemia; Z79.01 Long term (current) use of anticoagulants; Z79.899 Other long term (current) drug therapy; Z88.8 Allergy status to other drugs, medicaments and biological substances; Z82.49 Family history of ischemic heart disease and other diseases of the circulatory system
CPT/HCPCS: 36415; 71045; 80048; 80053; 81001; 82550; 82803; 83605; 84484; 85025; 85027; 85610; 87040; 87086; 87324; 87449; 93005; 93010; 94640; 96360; 99291; J1956; J2543; J3490; J7030

== ENCOUNTER 2019-08-22 08:33 | Day surgery (SDC) | payer MEDICARE, OTHER ==
[~2019-08-22 08:33] MED LIST changes: +BUPIVACAINE HCL 0.75% INJ/PF (7.5 MG/1 ML) 10 ML SDV OD PRN; +CHONDR SU A NA/HYALUR INTRAOC KIT (SURGICARE) ONE; +EPINEPHRINE INJ/PF 1 MG/1 ML AMPULE ONE; +FENTANYL CITRATE INJ/PF 100 MCG/2 ML AMPUL ONE; +KETOROLAC TROMETHAMINE 0.45% 4 DROP/0.4 ML DROPERETTE OD PRN; +LIDOCAINE 1% INJ-PF (10 MG/ML) 30 ML SDV ONE; +LIDOCAINE 4% INJ/PF (40 MG/ML) 5 ML AMPUL OD PRN; +MIDAZOLAM 2 MG/2 ML INJ ONE; +ONDANSETRON HCL INJ/PF 4 MG/2 ML SDV ONE; -REGADENOSON INJ 0.4 MG/5 ML DISP.SYRIN IV ONE
[2019-08-22] MEDS: TROPICAMIDE 1% OPH SOLN 15 ML OD PRN ×3 (08:57→09:16)
[2019-08-22] MEDS: TETRACAINE HCL 0.5% OPH SOLN 4 ML OD PRN ×3 (08:57→09:24)
[2019-08-22] MEDS: CYCLOPENTOLATE 0.2%/PHENYLEPHRINE 1% OPH SOLN 2 ML OD PRN ×3 (08:57→09:16)
[2019-08-22] MEDS: BESIFLOXACIN HCL 0.6% OPH SUSP 5 ML BOTTLE OD PRN ×4 (08:57→09:49)
[2019-08-22] MEDS: DORZOLAMIDE HCL 2%/TIMOLOL MALEAT 0.5% OPH SOLN 10 ML OD PRN ×2 (09:49)
--- NOTE | 2019-08-22 12:41 | Operative Report ---
Operative Report-[facility] Operative Report: DATE OF SURGERY: 08/22/2019 PREOPERATIVE DIAGNOSIS: CATARACT, RIGHT EYE. POSTOPERATIVE DIAGNOSIS: CATARACT, RIGHT EYE. PROCEDURE PERFORMED: PHACOEMULSIFICATION WITH POSTERIOR CHAMBER INTRAOCULAR LENS, RIGHT EYE. Intraocular Lens Model : MX60E 28.0 Total Phaco Time: 8.30 CDE SURGEON: LEONARDO PEREZ MD ANESTHESIA: TOPICAL WITH MAC. INDICATIONS FOR SURGERY: Difficulty reading road signs and words on TV. PROCEDURE: The patient was brought to the Operating Room and placed on the operative table. Following tetracaine drops, topical anesthesia was administered. This consisted of instrument wipe pledgets soaked in a solution of 4% Xylocaine mixed with 0.75% Marcaine in a 1:2 ratio. A 2 x 1 cm pledget was placed in the superior fornix. A 1 x 1 cm pledget was placed in the inferior fornix. The eye was patched shut for 5 minutes. The patch was removed. The eye was sterilely prepped and draped in the usual manner. Lid speculum was placed in the eye. The pledgets were removed. 4-0 black silk sutures were placed around the superior and the inferior rectus muscles to be used as traction. A conjunctival peritomy was made at the 10 o'clock position. Hemostasis was obtained with bipolar cautery. A posterior limbal groove was created using a crescent knife and dissected anteriorly towards the cornea. A sharp point blade was used to create a paracentesis site at the 2 o'clock position. 0.2 cc non preserved Lidocaine was injected into the anterior chamber. A 2.4 mm keratome was used to enter the anterior chamber through the groove. Viscoelastic was injected into the anterior chamber. An anterior capsulotomy was performed using Utrata forceps in a capsulorrhexis fashion. Hydrodissection and hydrodelineation were performed. Phacoemulsification was performed in [id number] technique. Following this, the I/A unit was used to remove residual cortex. Viscoelastic was injected into the capsular bag. The Intraocular lens was placed in the capsular bag. The I/A unit was used to remove residual viscoelastic. The wound was seen to be watertight under high and low pressure, and no sutures were placed. The intraocular lens was well centered. The pressure was adjusted in the eye to normal pressure. The 4-0 black silk sutures and lid speculum were removed. The eye was shielded after Besivance. prednisolone, and Cosopt drops were placed. The patient tolerated the procedure well and was sent to the Recovery Room in good condition.
== END 2019-08-22 10:35 | disposition home or self-care (01) ==
LOC: SC 08:33
PROVIDERS: ATTEND Ophthalmology
DX: H25.813 Combined forms of age-related cataract, bilateral (principal); H40.033 Anatomical narrow angle, bilateral; H53.2 Diplopia; H04.123 Dry eye syndrome of bilateral lacrimal glands; H17.89 Other corneal scars and opacities; J44.9 Chronic obstructive pulmonary disease, unspecified; I10 Essential (primary) hypertension; Z88.8 Allergy status to other drugs, medicaments and biological substances; I48.91 Unspecified atrial fibrillation; Z79.899 Other long term (current) drug therapy; Z87.891 Personal history of nicotine dependence; Z79.01 Long term (current) use of anticoagulants
CPT/HCPCS: 66984; 00142; V2632; J2250; J3490 ×5; A9270; J0171; J2405; 142; J3010

== ENCOUNTER 2019-10-10 06:28 | Day surgery (SDC) | payer MEDICARE, OTHER ==
[~2019-10-10 06:28] MED LIST changes: -BUPIVACAINE HCL 0.75% INJ/PF (7.5 MG/1 ML) 10 ML SDV OD PRN; +BUPIVACAINE HCL 0.75% INJ/PF (7.5 MG/1 ML) 10 ML SDV OS PRN; -CHONDR SU A NA/HYALUR INTRAOC KIT (SURGICARE) ONE; -EPINEPHRINE INJ/PF 1 MG/1 ML AMPULE ONE; -FENTANYL CITRATE INJ/PF 100 MCG/2 ML AMPUL ONE; -KETOROLAC TROMETHAMINE 0.45% 4 DROP/0.4 ML DROPERETTE OD PRN; +KETOROLAC TROMETHAMINE 0.45% 4 DROP/0.4 ML DROPERETTE OS PRN; -LIDOCAINE 1% INJ-PF (10 MG/ML) 30 ML SDV ONE; -LIDOCAINE 4% INJ/PF (40 MG/ML) 5 ML AMPUL OD PRN; +LIDOCAINE 4% INJ/PF (40 MG/ML) 5 ML AMPUL OS PRN; -MIDAZOLAM 2 MG/2 ML INJ ONE; -ONDANSETRON HCL INJ/PF 4 MG/2 ML SDV ONE
[2019-10-10] MEDS: TETRACAINE HCL 0.5% OPH SOLN 4 ML OS PRN ×3 (06:42→07:33)
[2019-10-10] MEDS: BESIFLOXACIN HCL 0.6% OPH SUSP 5 ML BOTTLE OS PRN ×4 (06:43→08:01)
[2019-10-10] MEDS: TROPICAMIDE 1% OPH SOLN 15 ML OS PRN ×3 (06:43→07:04)
[2019-10-10] MEDS: CYCLOPENTOLATE 0.2%/PHENYLEPHRINE 1% OPH SOLN 2 ML OS PRN ×3 (06:43→07:04)
[2019-10-10] MEDS ORDERED: MIDAZOLAM 2 MG/2 ML INJ ONE (07:00)
[2019-10-10] MEDS ORDERED: FENTANYL CITRATE INJ/PF 100 MCG/2 ML AMPUL ONE (07:01)
[2019-10-10] MEDS ORDERED: LIDOCAINE 1% INJ-PF (10 MG/ML) 30 ML SDV ONE (07:14)
[2019-10-10] MEDS ORDERED: EPINEPHRINE INJ/PF 1 MG/1 ML AMPULE ONE (07:14)
[2019-10-10] MEDS ORDERED: CHONDR SU A NA/HYALUR INTRAOC KIT (SURGICARE) ONE (07:14)
[2019-10-10] MEDS: DORZOLAMIDE HCL 2%/TIMOLOL MALEAT 0.5% OPH SOLN 10 ML OS PRN ×2 (08:01)
--- NOTE | 2019-10-10 09:28 | Operative Report ---
Operative Report-[facility] Operative Report: DATE OF SURGERY: 10/10/2019 PREOPERATIVE DIAGNOSIS: CATARACT, LEFT EYE. POSTOPERATIVE DIAGNOSIS: CATARACT, LEFT EYE. PROCEDURE PERFORMED: PHACOEMULSIFICATION WITH POSTERIOR CHAMBER INTRAOCULAR LENS, LEFT EYE. Intraocular Lens Model : MX60E 28.0 Total Phaco Time: 6.29 CDE SURGEON: LEONARDO PEREZ MD ANESTHESIA: TOPICAL WITH MAC. INDICATIONS FOR SURGERY: Optical imbalance after cataract surgery on the right eye PROCEDURE: The patient was brought to the Operating Room and placed on the operative table. Following tetracaine drops, topical anesthesia was administered. This consisted of instrument wipe pledgets soaked in a solution of 4% Xylocaine mixed with 0.75% Marcaine in a 1:2 ratio. A 2 x 1 cm pledget was placed in the superior fornix. A 1 x 1 cm pledget was placed in the inferior fornix. The eye was patched shut for 5 minutes. The patch was removed. The eye was sterilely prepped and draped in the usual manner. Lid speculum was placed in the eye. The pledgets were removed. 4-0 black silk sutures were placed around the superior and the inferior rectus muscles to be used as traction. A conjunctival peritomy was made at the 10 o'clock position. Hemostasis was obtained with bipolar cautery. A posterior limbal groove was created using a crescent knife and dissected anteriorly towards the cornea. A sharp point blade was used to create a paracentesis site at the 2 o'clock position. 0.2 cc non preserved Lidocaine was injected into the anterior chamber. A 2.4 mm keratome was used to enter the anterior chamber through the groove. Viscoelastic was injected into the anterior chamber. An anterior capsulotomy was performed using Utrata forceps in a capsulorrhexis fashion. Hydrodissection and hydrodelineation were performed. Phacoemulsification was performed in [id number]-[id number] technique. Following this, the I/A unit was used to remove residual cortex. Viscoelastic was injected into the capsular bag. The Intraocular lens was placed in the capsular bag. The I/A unit was used to remove residual viscoelastic. The wound was seen to be watertight under high and low pressure, and no sutures were placed. The intraocular lens was well centered. The pressure was adjusted in the eye to normal pressure. The 4-0 black silk sutures and lid speculum were removed. The eye was shielded after Besivance,prednisolone, and Cosopt drops were placed. The patient tolerated the procedure well and was sent to the Recovery Room in good condition.
== END 2019-10-10 08:35 | disposition home or self-care (01) ==
LOC: SC 06:28
PROVIDERS: ATTEND Ophthalmology
DX: H25.812 Combined forms of age-related cataract, left eye (principal); Z96.1 Presence of intraocular lens; I10 Essential (primary) hypertension; J45.909 Unspecified asthma, uncomplicated; I48.91 Unspecified atrial fibrillation; Z88.8 Allergy status to other drugs, medicaments and biological substances; Z79.899 Other long term (current) drug therapy; Z79.51 Long term (current) use of inhaled steroids; Z79.01 Long term (current) use of anticoagulants; Z86.73 Personal history of transient ischemic attack (TIA), and cerebral infarction without residual deficits
CPT/HCPCS: 66984; V2632; J2250; J3490 ×5; A9270; J0171; J3010; 142

== ENCOUNTER 2019-11-30 18:57 | Emergency (ER) | payer MEDICARE, OTHER ==
[2019-11-30 20:10] LABS: ABSOLUTE EOSINOPHILS # (AUTO) 0.2 10^3/uL (0.0-0.6); ABSOLUTE LYMPHOCYTES (AUTO) 2.3 10^3/uL (0.5-4.7); ABSOLUTE MONOCYTES (AUTO) 0.7 10^3/uL (0.1-1.4); ABSOLUTE NEUT (AUTO) 5.3 10^3/uL (1.7-8.2); BASOPHILS % (AUTO) 0.2 % (0-2); EOSINOPHILS % (AUTO) 2.1 % (0-6); HEMATOCRIT 45.9 % (36.0-47.0); HEMOGLOBIN 15.2 g/dL (12.0-15.5); LYMPHOCYTES % (AUTO) 26.7 % (13-45); MEAN CORPUSCULAR HEMOGLOBIN 30.1 pg (27.0-33.4); MEAN CORPUSCULAR VOLUME 91 fl (80-97); MONOCYTES % (AUTO) 8.6 % (3-13); PLATELET COUNT 240 10^3/uL (150-450); RED BLOOD COUNT 5.03 10^6/uL (3.72-5.28); RED CELL DISTRIBUTION WIDTH 13.8 % (11.5-14.0); SEGMENTED NEUTROPHILS % (AUTO) 62.4 % (42-78); TOTAL CELLS COUNTED % (AUTO) 100 %; WHITE BLOOD COUNT 8.5 10^3/uL (4.0-10.5)
[2019-11-30 20:17] LABS: ALBUMIN 3.9 g/dL (3.5-5.0); ALKALINE PHOSPHATASE 115 U/L (38-126); ANION GAP 6 (5-19); ASPARTATE AMINO TRANSFERASE 27 U/L (14-36); BILIRUBIN,TOTAL 0.4 mg/dL (0.2-1.3); BLOOD UREA NITROGEN 17 mg/dL (7-20); CALCIUM 9.4 mg/dL (8.4-10.2); CARBON DIOXIDE 26 mmol/L (22-30); CHLORIDE 109 mmol/L (98-107); GLUCOSE 93 mg/dL (75-110); POTASSIUM 4.1 mmol/L (3.6-5.0); TOTAL PROTEIN 6.8 g/dL (6.3-8.2)
[2019-11-30 21:14] LABS: APPEARANCE,URINE CLEAR; BILIRUBIN,URINE NEGATIVE (NEGATIVE); COLOR,URINE YELLOW; GLUCOSE, URINE NEGATIVE (NEGATIVE); KETONES,URINE NEGATIVE (NEGATIVE); LEUKOCYTE ESTERASE,URINE MODERATE (NEGATIVE); NITRITE,URINE NEGATIVE (NEGATIVE); PROTEIN,URINE NEGATIVE (NEGATIVE); URINE SPECIFIC GRAVITY 1.008; UROBILINOGEN,URINE NEGATIVE mg/dL (<2.0)
[2019-11-30] MEDS ORDERED: MORPHINE SULFATE 10 MG/ML INJ IV ONE ×2 (22:20→22:29)
[2019-11-30] MEDS ORDERED: ONDANSETRON HCL INJ/PF 4 MG/2 ML SDV IV ONE (22:29)
[2019-11-30] MEDS ORDERED: NORMAL SALINE 1000 ML 1,000 ML IV ONE (22:30)
--- NOTE | 2019-11-30 22:36 | ER Document Report ---
ED GI/ - General Chief Complaint: Epigastric Pain Stated Complaint: EPIGASTRIC PAIN Time Seen by Provider: 11/30/19 21:40 Primary Care Provider: SHANI REED MD [ACTIVE STAFF] - 12/04/19 (Please call office to arrange appointment for surgical follow-up) EVELYN ROMERO MD [Primary Care Provider] - Follow up as needed Mode of Arrival: Medic Information source: Patient Notes: 74-year-old female presented to ED for ventral hernia. She was seen by Dr. Newby he sent her to the hospital to get a ultrasound to evaluate her ventral hernia and it did show that she had a incisional hernia containing peristalsing bowel. She was then sent to the emergency room for evaluation. I did go in and evaluate the patient she did have a very painful incisional hernia. I did attempt to reduce the hernia and she stated it was very painful. I did come up to consult the surgeon to come to reduce the hernia but when I went back in the room with the surgeon she stated the hernia was no longer hurting. The surgeon stated that I had reduced the hernia and there was just a small amount of the hernia out at that time. He did discuss with her that she should follow-up in his office outpatient for this incisional hernia TRAVEL OUTSIDE OF THE [place] IN LAST 30 DAYS: No - HPI Patient complains to provider of: Abdominal pain Onset: Other Timing/Duration: Gradual Quality of pain: Sharp Severity at maximum: Moderate Severity in ED: Moderate Pain Level: 3 Location: Other - Mid upper abdomen at the site of the incisional hernia Associated symptoms: Other - Mid upper abdominal pain at the site of the hernia. There is a small hernia that was seen on ultrasound. This is a repeated ventral hernia that has been repaired 2 times previously Exacerbated by: Other - Palpation Relieved by: Denies Similar symptoms previously: Yes Recently seen / treated by doctor: Yes - Related Data Allergies/Adverse Reactions: atenolol Allergy (Intermediate, Verified 10/06/19 14:54) atorvastatin [From Lipitor] Allergy (Intermediate, Verified 10/06/19 14:54) Past Medical History - General Information source: Patient - Social History Smoking Status: Former Smoker Frequency of alcohol use: None Drug Abuse: None Lives with: Family Family History: Reviewed & Not Pertinent Patient has homicidal ideation: No - Past Medical History Cardiac Medical History: Reports: Hx Atrial Fibrillation, Hx Hypertension Pulmonary Medical History: Reports: Hx Asthma - SINUS, POST NASAL DRIP EENT Medical History: Reports: None Neurological Medical History: Reports: None Endocrine Medical History: Reports: None Renal/ Medical History: Reports: None Malignancy Medical History: Reports: None GI Medical History: Reports: Hx Hepatitis - HX 30 YRS AGO, Hx Hiatal Hernia, Other - Hernia ventral Musculoskeletal Medical History: Reports None Skin Medical History: Reports None Psychiatric Medical History: Reports: None Traumatic Medical History: Reports: None Infectious Medical History: Reports: Hx Hepatitis - HX 30 YRS AGO Past Surgical History: Reports: Hx Abdominal Surgery - hernia repair x2, Hx Section - x2 Review of Systems - Review of Systems Constitutional: No symptoms reported EENT: No symptoms reported Cardiovascular: No symptoms reported Respiratory: No symptoms reported Gastrointestinal: Abdominal pain - Ventral hernia Genitourinary: No symptoms reported Female Genitourinary: No symptoms reported Musculoskeletal: No symptoms reported Skin: No symptoms reported Hematologic/Lymphatic: No symptoms reported Neurological/Psychological: No symptoms reported Physical Exam - Vital signs Vitals: Temp Pulse Resp BP Pulse Ox 98.6 F 83 18 160/93 H 97 11/30/19 19:02 11/30/19 19:02 11/30/19 19:02 11/30/19 19:02 11/30/19 19:02 Interpretation: Normal - General General appearance: Appears well, Alert - HEENT Head: Normocephalic, Atraumatic Eyes: Normal Pupils: PERRL - Respiratory Respiratory status: No respiratory distress Chest status: Nontender Breath sounds: Normal Chest palpation: Normal - Cardiovascular Rhythm: Regular Heart sounds: Normal auscultation Murmur: No - Abdominal Inspection: Normal Distension: No distension Bowel sounds: Normal Tenderness: Tender Organomegaly: No organomegaly, Other - Ventral hernia at the site of previous ventral hernia that was seen on ultrasound ordered by Dr. Newby - Back Back: Normal, Nontender - Extremities General upper extremity: Normal inspection, Nontender, Normal color, Normal ROM, Normal temperature General lower extremity: Normal inspection, Nontender, Normal color, Normal ROM, Normal temperature, Normal weight bearing. No: Nitish's sign - Neurological Neuro grossly intact: Yes Cognition: Normal Orientation: AAOx4 Kike Coma Scale Eye Opening: Spontaneous Kike Coma Scale Verbal: Oriented [place] Coma Scale Motor: Obeys Commands Kike Coma Scale Total: 15 Speech: Normal Motor strength normal: LUE, RUE, LLE, RLE Sensory: Normal - Psychological Associated symptoms: Normal affect, Normal mood - Skin Skin Temperature: Warm Skin Moisture: Dry Skin Color: Normal Course - Re-evaluation Re-evalutation: 12/01/19 07:24 Patient was given instructions on following up with [facility] with . He did give these instructions and then I reiterated to him as well as given her written instructions to follow-up with him. She is also supposed to follow-up with her barrel bander due to the fact that she is on Coumadin and will need to have this ventral hernia repaired. She was also instructed that her PT/INR was not therapeutic at this time and she should call her barrel bander concerning this also. Patient verbalized understanding and agreement with treatment plan and patient was discharged home. - Vital Signs Vital signs: Temp Pulse Resp BP Pulse Ox 97.9 F 83 20 167/81 H 95 11/30/19 23:11 11/30/19 19:02 11/30/19 23:11 11/30/19 23:11 11/30/19 23:11 - Laboratory Result Diagrams: 11/30/19 19:38 11/30/19 19:38 Laboratory results interpreted by me: 11/30/19 11/30/19 11/30/19 19:38 19:38 20:45 PT 20.9 H Chloride 109 H Est GFR ( Amer) 59 L Est GFR (MDRD) Non-Af 49 L Ur Leukocyte Esterase MODERATE H Discharge - Discharge Clinical Impression: Ventral hernia Qualifiers: Obstruction and gangrene presence: without obstruction or gangrene Qualified Code(s): K43.9 - Ventral hernia without obstruction or gangrene Condition: Stable Disposition: HOME, SELF-CARE Additional Instructions: You were seen today for an incisional hernia that was containing peristalsing bowel. This has been reduced in the emergency room. Intravenous (IV) Fluids As part of your care today, you received intravenous (IV) fluids. IV fluids are administered to patients who are dehydrated or to those who have certain chemical (electrolyte) abnormalities that need correcting. Pain Medication Injection You have received an injection of a pain medication. You should experience significant pain relief within 45 minutes. This drug is a narcotic -- it will impair your judgement, slow your reaction time and make you sleepy (as well as relieve your pain). Narcotics also can cause nausea. You should not drive, work with machinery, or perform any task requiring mental alertness until all effects of the medication are gone -- six to eight hours. Do not take any alcohol, or sedatives, and do not take any other medication without checking with your physician. Antinausea Medication You have been given a medication to suppress nausea and vomiting. This type of medication can be given as a shot, pill, or suppository. It will usually last for many hours. Pills and shots usually last six to eight hours, suppositories last about 12 hours. For the typical illness, only one or two doses of the medication may be necessary. Mild lightheadedness may occur. This type of medicine can cause drowsiness. Do not drive or operate dangerous machinery while under its influence. Do not mix with alcohol. See your doctor at once if you have muscle spasms or tightness, or uncontrollable motions (particularly of the neck, mouth, or jaw). Persistent vomiting or severe lightheadedness should also be evaluated by the physician. You will need to stop your Coumadin for a week before you can get the hernia repaired. Dr. Silvestre has come to the bedside and discussed this with you. You also need to get cleared by your barrel bander for your A. fib before he can repair it. Please call his office either Wednesday or Wednesday and get this appointment arranged for preop. FOLLOW-UP CARE: If you have been referred to a physician for follow-up care, call the physicians office for an appointment as you were instructed or within the next two days. If you experience worsening or a significant change in your symptoms, notify the physician immediately or return to the Emergency Department at any time for re-evaluation. Referrals: EVELYN ROMERO MD [Primary Care Provider] - Follow up as needed SHANI REED MD [ACTIVE STAFF] - 12/04/19 (Please call office to arrange appointment for surgical follow-up)
[2019-11-30 22:43] LABS: INTERNATIONAL RATION (INR) 1.78; PROTHROMBIN TIME 20.9 SEC (11.4-15.4)
[2019-11-30 23:23] VITALS: BP 167/81
--- NOTE | 2019-12-01 19:33 | EKG REPORT ---
SEVERITY:- ABNORMAL ECG - ATRIAL FIBRILLATION, V-RATE 69-106 RIGHT BUNDLE BRANCH BLOCK LEFT VENTRICULAR HYPERTROPHY : Confirmed by: Sajan Meyer 01-Dec-2019 19:32:16
== END 2019-11-30 23:24 | disposition home or self-care (01) ==
LOC: ER 18:57
DX: K43.9 Ventral hernia without obstruction or gangrene (principal); R10.13 Epigastric pain; R10.9 Unspecified abdominal pain; Z87.891 Personal history of nicotine dependence; Z88.8 Allergy status to other drugs, medicaments and biological substances; I10 Essential (primary) hypertension; J45.909 Unspecified asthma, uncomplicated
CPT/HCPCS: 93005; 99283; 96361; 96374; 96375; 36415; 83690; 85025; 85610; 80053; 81001; 93010; J2270; J2405; J7030; 76705

== ENCOUNTER → 2019-11-30 | Outpatient (CLI) | payer MEDICARE, OTHER ==
--- NOTE | 2019-11-30 18:35 | RADIOLOGY REPORT (SQ) ---
EXAM DESCRIPTION: U/S ABDOMEN LIMITED W/O DOP IMAGES COMPLETED DATE/TIME: 11/30/2019 6:05 pm REASON FOR STUDY: K43.2 INCISIONAL HERNIA WITHOUT OBSTRUCTION OR GANGRENE K43.2 INCISIONAL HERNIA W ITHOUT OBSTRUCTION OR GANGRENE R10.13 EPIGASTRIC PAIN COMPARISON: None. TECHNIQUE: Dynamic and static grayscale images acquired of the abdomen and recorded on PACS. Additio nal selected color Doppler and spectral images recorded. LIMITATIONS: None. FINDINGS: In the area of concern there is a hernia measuring about 2.2 x 1.5 x 3.1 cm containing per istalsing bowel. The defect measures 18.2 mm. IMPRESSION: Incisional hernia containing peristalsing bowel. TECHNICAL DOCUMENTATION: JOB ID: [id number] 2010 [employer]- All Rights Reserved Reading location - IP/workstation name: [email or web address]
== END ==
LOC: RAD 16:33
PROVIDERS: ATTEND Internal Medicine Gastroenterology
DX: K43.2 Incisional hernia without obstruction or gangrene (principal); R10.13 Epigastric pain
CPT/HCPCS: 76705

== ENCOUNTER 2020-01-12 07:29 | Day surgery (SDC) | payer MEDICARE, OTHER ==
[2020-01-11 09:29] LABS: HEMATOCRIT 44.1 % (36.0-47.0); HEMOGLOBIN 14.4 g/dL (12.0-15.5); MEAN CORPUSCULAR HEMOGLOBIN 29.8 pg (27.0-33.4); MEAN CORPUSCULAR HGB CONC 32.7 g/dL (32.0-36.0); MEAN CORPUSCULAR VOLUME 91 fl (80-97); PLATELET COUNT 187 10^3/uL (150-450); RED BLOOD COUNT 4.84 10^6/uL (3.72-5.28); RED CELL DISTRIBUTION WIDTH 14.2 % (11.5-14.0); WHITE BLOOD COUNT 6.2 10^3/uL (4.0-10.5)
[2020-01-11 09:36] LABS: APPEARANCE,URINE CLEAR; BILIRUBIN,URINE NEGATIVE (NEGATIVE); COLOR,URINE STRAW; GLUCOSE, URINE NEGATIVE (NEGATIVE); KETONES,URINE NEGATIVE (NEGATIVE); LEUKOCYTE ESTERASE,URINE LARGE (NEGATIVE); NITRITE,URINE NEGATIVE (NEGATIVE); PROTEIN,URINE NEGATIVE (NEGATIVE); URINE SPECIFIC GRAVITY 1.004; UROBILINOGEN,URINE NEGATIVE mg/dL (<2.0)
[2020-01-11 09:36] LABS: INTERNATIONAL RATION (INR) 1.76; PROTHROMBIN TIME 20.6 SEC (11.4-15.4)
[2020-01-11 09:37] LABS: PARTIAL THROMBOPLASTIN TIME 31.3 SEC (23.5-35.8)
[2020-01-11 10:19] LABS: ANION GAP 8 (5-19); BLOOD UREA NITROGEN 27 mg/dL (7-20); CALCIUM 9.2 mg/dL (8.4-10.2); CARBON DIOXIDE 25 mmol/L (22-30); CHLORIDE 106 mmol/L (98-107); GLUCOSE 122 mg/dL (75-110); POTASSIUM 4.2 mmol/L (3.6-5.0)
--- NOTE | 2020-01-11 11:08 | RADIOLOGY REPORT (SQ) ---
EXAM DESCRIPTION: CHEST PA/LATERAL IMAGES COMPLETED DATE/TIME: 01/11/2020 9:02 am REASON FOR STUDY: PRE-OP COMPARISON: 02/14/2019 EXAM PARAMETERS: NUMBER OF VIEWS: two views TECHNIQUE: Digital Frontal and Lateral radiographic views of the chest acquired. RADIATION DOSE: NA LIMITATIONS: none FINDINGS: LUNGS AND PLEURA: No opacities, masses or pneumothorax. No pleural effusion. MEDIASTINUM AND HILAR STRUCTURES: No masses or contour abnormalities. HEART AND VASCULAR STRUCTURES: Heart size is stable. No failure. BONES: No acute findings. HARDWARE: None in the chest. OTHER: No other significant finding. IMPRESSION: NO SIGNIFICANT RADIOGRAPHIC FINDING IN THE CHEST. TECHNICAL DOCUMENTATION: JOB ID: [id number] 2010 [employer]- All Rights Reserved Reading location - IP/workstation name: [email or web address]
--- NOTE | 2020-01-11 12:30 | EKG REPORT ---
SEVERITY:- ABNORMAL ECG - ATRIAL FIBRILLATION, V-RATE 59-95 LAFB RIGHT BUNDLE BRANCH BLOCK LEFT VENTRICULAR HYPERTROPHY : Confirmed by: Thom Little MD 11-Jan-2020 12:30:26
[~2020-01-12 07:29] MED LIST changes: +BUPIVACAINE HCL 0.25 % INJ/PF (2.5 MG/1 ML) 30 ML VIAL ONE; -BUPIVACAINE HCL 0.75% INJ/PF (7.5 MG/1 ML) 10 ML SDV OS PRN; -KETOROLAC TROMETHAMINE 0.45% 4 DROP/0.4 ML DROPERETTE OS PRN; +LACTATED RINGERS 1000 ML IV PRN; -LIDOCAINE 4% INJ/PF (40 MG/ML) 5 ML AMPUL OS PRN; +VANCOMYCIN HCL 1,000 MG in DEXTROSE 5%-WATER 250 ML IV PRN
[2020-01-12] MEDS ORDERED: LIDOCAINE 2% INJ-PF (20 MG/ML) 2 ML AMPUL ONE (08:32)
[2020-01-12] MEDS ORDERED: ONDANSETRON HCL INJ/PF 4 MG/2 ML SDV ONE ×3 (08:32→20:23)
[2020-01-12] MEDS ORDERED: SUCCINYLCHOLINE CHLORIDE INJ 200 MG/10 ML VIAL ONE (08:32)
[2020-01-12] MEDS ORDERED: ROCURONIUM BROMIDE INJ 50 MG/5 ML VIAL IV ONE (08:32)
[2020-01-12] MEDS ORDERED: NEOSTIGMINE METHYLSULFATE 10 MG/10 ML VIAL ONE (08:32)
[2020-01-12] MEDS ORDERED: PHENYLEPHRINE HCL INJ/PF 10 MG/1 ML SDV ONE (08:32)
[2020-01-12] MEDS ORDERED: DEXAMETHASONE SOD PHOSPHATE INJ 4 MG/1 ML VIAL ONE (08:32)
[2020-01-12] MEDS ORDERED: GLYCOPYRROLATE 1 MG/5 ML VIAL ONE (08:32)
[2020-01-12 08:49] LABS: POTASSIUM 4.2 mmol/L (3.6-5.0)
[2020-01-12 09:56] LABS: INTERNATIONAL RATION (INR) 1.31; PROTHROMBIN TIME 16.5 SEC (11.4-15.4)
[2020-01-12 09:57] LABS: PARTIAL THROMBOPLASTIN TIME 27.2 SEC (23.5-35.8)
[2020-01-12] MEDS ORDERED: MIDAZOLAM 2 MG/2 ML INJ ONE (11:48)
[2020-01-12] MEDS ORDERED: MORPHINE SULFATE 10 MG/ML INJ ONE (11:48)
[2020-01-12] MEDS ORDERED: PROPOFOL INJ 200 MG/20 ML VIAL IV ONE (11:48)
[2020-01-12] MEDS ORDERED: FENTANYL CITRATE INJ/PF 250 MCG/5 ML AMPULE ONE (11:48)
[2020-01-12] MEDS ORDERED: FENTANYL CITRATE INJ/PF 100 MCG/2 ML AMPUL IV PRN (13:57)
[2020-01-12] MEDS ORDERED: DIPHENHYDRAMINE HCL 50 MG/ML VIAL IV PRN (13:57)
[2020-01-12] MEDS ORDERED: MEPERIDINE HCL/PF INJ 25 MG/1 ML DISP.SYRIN IV PRN (13:57)
[2020-01-12] MEDS ORDERED: PROMETHAZINE HCL INJ 25 MG/1 ML VIAL IV PRN (13:57)
[2020-01-12] MEDS ORDERED: MORPHINE SULFATE 10 MG/ML INJ IV PRN (13:57)
--- NOTE | 2020-01-12 14:27 | Discharge Summary ---
Discharge Summary (SDC) - Discharge Final Diagnosis: recurrent ventral hernia Date of Surgery: 01/12/20 Discharge Date: 01/12/20 Condition: Stable Treatment or Instructions: Discharge home. Diet as tolerated. Activity: No lifting greater than 10 pounds x 6 weeks. Follow-up with me in 7 to 10 days. [place] 10/325 mg p.o. every 6 hours as needed for pain. Ibuprofen 800 mg p.o. 3 times daily with meals. Okay to shower starting Wednesday. No tub baths or swimming pools x2 weeks. Prescriptions: Ibuprofen [Motrin 800 mg Tablet] 800 mg PO MEALS #48 tablet Hydrocodone/Acetaminophen [[place] 10-325 mg Tablet] 1 tab PO Q6HP PRN #28 tablet PRN Reason: For Pain Referrals: EVELYN ROMERO MD [Primary Care Provider] - Discharge Diet: As Tolerated Respiratory Treatments at Home: Deep Breathing/Coughing, Incentive Spirometer Discharge Activity: Balance Activity w/Rest, No Lifting Over 10 Pounds, No Lifting/Push/Pulling Report the Following to Your Physician Immediately: Shortness of Breath, Nausea, Vomiting, Increase in Pain, Fever over 101 Degrees, Unusual Bleeding
--- NOTE | 2020-01-12 14:38 | Operative Report ---
Nonrecallable Operative Report DATE OF SURGERY: 01/12/20 PREOPERATIVE DIAGNOSIS: Recurrent ventral incisional hernia POSTOPERATIVE DIAGNOSIS: Same as above OPERATION: Robot-assisted laparoscopic recurrent ventral hernia repair with mesh. SURGEON: SHANI REED 1ST INTERIOR DECORATOR PAINTING: LORA TERRELL ANESTHESIA: GA TISSUE REMOVED OR ALTERED: Old hernia mesh x2 COMPLICATIONS: None apparent ESTIMATED BLOOD LOSS: Minimal PROCEDURE: Drains/implants: 10 x [address] hernia mesh. Procedure in detail: After informed consent was obtained, the patient was brought to the operating room and laid in the supine position. The area of the abdomen was prepped and draped in a normal sterile fashion. An incision was created in the left upper quadrant. A 5 mm trocar and 5 mm camera were then introduced into the abdomen using the Optiview technique. Gas insufflation was attached, and pneumoperitoneum was achieved. A left-sided 12 mm trocar was then placed under direct laparoscopic visualization. An 8 mm robotic trocar was placed in the suprapubic midline under direct laparoscopic visualization. The 5 mm left upper quadrant trocar was removed, and replaced with an 8 mm robotic trocar. The robot was brought over the patient, and docked appropriately. I then assumed my position at the surgeon's console. The hernia defect was brought into view. There was a large amount of omentum adherent to the hernia defect and old hernia mesh. 2 separate pieces of old hernia mesh were identified. These were freed from the anterior abdominal wall, and removed from the patient. Next, the hernia defect was examined. The midline defect was closed using number 1 V lock suture in simple running fashion. This was done with 2 overlapping sutures. Next, a 10 x [address] hernia mesh was chosen to cover the defect. The mesh was placed into the abdominal cavity. It was apposed to the anterior abdominal wall using the EPS. The mesh was sutured to the anterior abdominal wall using 2-0 nonabsorbable V lock suture. Once complete, the mesh was found to lie in good position. The robot was then undocked, and I scrubbed back into the case. The 8 mm trocar sites were closed using 0 Vicryl suture in simple interrupted fashion with the aid of the Erickson-Velma device. The left lateral 12 mm trocar was closed using 0 Vicryl suture in lhwgae-[id number]-yfhbs fashion with the aid of the Erickson-Velma device. The overlying skin was closed using 4-0 Vicryl Rapide suture in subcuticular fashion. Dressings were placed, and the procedure was concluded. All sponge, instrument, needle counts were correct x2. Condition: Stable. Lora Terrell PA-C was scrubbed and present the entirety the procedure. She assisted with all portions of the procedure including insertion of the trochars, docking of the robot, exchanging the robotic instruments, closure of the fascia, insertion of the mesh, closure of the skin.
[2020-01-12] MEDS ORDERED: FENTANYL CITRATE INJ/PF 100 MCG/2 ML AMPUL ONE (14:57)
[2020-01-12] MEDS ORDERED: HYDROCODONE/ACETAMINOPHEN 10-325 MG TABLET ONE (16:39)
[2020-01-12] MEDS ORDERED: HYDROCODONE/ACETAMINOPHEN 10-325 MG TABLET PO ONE (16:45)
[2020-01-12] MEDS ORDERED: ONDANSETRON HCL INJ/PF 4 MG/2 ML SDV IV PRN (18:49)
--- NOTE | 2020-01-12 18:49 | Progress Note ---
Provider Note Provider Note: Patient is refusing to go home due to pain. Her heart rate is normal. Her saturations are normal. Her blood pressure is normal. We will admit patient observation status and discharge home tomorrow morning.
[2020-01-12] MEDS ORDERED: (PENDING PHARMACY ID) (Albuterol Sulfate 1 PUFF) IH PRN (18:51)
[2020-01-12] MEDS: DILTIAZEM HCL 90 MG TABLET PO ONE ×2 (19:34→21:47)
[2020-01-12] MEDS ORDERED: LORAZEPAM 1 MG TABLET PO SCH (22:00)
[2020-01-12] MEDS ORDERED: WARFARIN SODIUM 5 MG TABLET PO SCH (22:00)
[2020-01-12] MEDS ORDERED: (PENDING PHARMACY ID) (Warfarin Sodium 5 MG) PO SCH (22:00)
[2020-01-12] MEDS: METOPROLOL TARTRATE 25 MG TABLET PO SCH (22:10)
[2020-01-12] MEDS: HYDROCODONE/ACETAMINOPHEN 10-325 MG TABLET PO PRN (22:11)
[2020-01-13] MEDS: HYDROCODONE/ACETAMINOPHEN 10-325 MG TABLET PO PRN (02:24)
[2020-01-13] MEDS ORDERED: PANTOPRAZOLE SODIUM 20 MG TABLET.DR PO SCH (06:00)
[2020-01-13] MEDS ORDERED: IBUPROFEN 800 MG TABLET PO SCH (08:00)
[2020-01-13] MEDS ORDERED: FUROSEMIDE 40 MG TABLET PO SCH (08:00)
[2020-01-13] MEDS: METOPROLOL TARTRATE 25 MG TABLET PO SCH (09:28)
[2020-01-13] MEDS ORDERED: DILTIAZEM HCL 240 MG CAPSULE.CR PO SCH (10:00)
[2020-01-13] MEDS ORDERED: (PENDING PHARMACY ID) (Tiotropium Bromide [Spiriva Handihaler 5 Cap/Kit (18 Mcg/Cap)] 1 CA IH SCH (10:00)
[2020-01-13] MEDS ORDERED: LISINOPRIL 10 MG TABLET PO SCH (10:00)
[2020-01-13] MEDS ORDERED: (PENDING PHARMACY ID) (Lisinopril [Lisinopril] 20 MG) PO SCH (10:00)
[2020-01-13] MEDS ORDERED: DILTIAZEM HCL 240 MG PO SCH (10:00)
[2020-01-13] MEDS ORDERED: FLUTICASONE/VILANTEROL 200-25 MCG/DOSE IH SCH (10:00)
[2020-01-13] MEDS ORDERED: (PENDING PHARMACY ID) (Cholecalciferol (Vitamin D3) [Vitamin D3 2000 Unit Tablet] 2,000 UN PO SCH (10:00)
[2020-01-13] MEDS ORDERED: CHOLECALCIFEROL (D3) 1,000 UNIT (25 MCG) TABLET PO SCH (10:00)
[2020-01-13 11:54] VITALS: BP 174/94
[2020-01-18] MEDS ORDERED: WARFARIN SODIUM 2.5 MG TABLET PO SCH (22:00)
== END 2020-01-13 12:45 | disposition home or self-care (01) ==
LOC: OROUT 07:29 → 4N 20:04 → OROUT 01-13 12:45
PROVIDERS: ATTEND Surgery
DX: K43.2 Incisional hernia without obstruction or gangrene (principal); Z79.01 Long term (current) use of anticoagulants; Z79.899 Other long term (current) drug therapy; J45.909 Unspecified asthma, uncomplicated; I45.10 Unspecified right bundle-branch block; I48.91 Unspecified atrial fibrillation; Z86.73 Personal history of transient ischemic attack (TIA), and cerebral infarction without residual deficits; Z88.8 Allergy status to other drugs, medicaments and biological substances; K21.9 Gastro-esophageal reflux disease without esophagitis; I10 Essential (primary) hypertension; E66.3 Overweight; Z87.891 Personal history of nicotine dependence; Z03.818 Encounter for observation for suspected exposure to other biological agents ruled out
CPT/HCPCS: 49656; S2900; 36415; 71046; 790; 80048; 81001; 82947; 84132; 85027; 85610; 85730; 86850; 86900; 86901; 87635; 93005; 93010; C1781; C9803; G0378; J0330; J1100; J2250; J2270; J2370; J2405; J2704; J2710; J3010; J3370; J3490; J7060